=== PATIENT | male | born 1985 | race Caucasian/White ===

== ENCOUNTER 2021-12-29 13:42 | Emergency (ER) | payer OTHER, SELFPAY ==
[2021-12-29 13:50] VITALS: BP 161/90; PULSE 97; RESP 20; TEMP 36.9; O2SAT 100
--- NOTE | 2021-12-29 13:51 | ED.GENADULT ---
HPI - General Adult General Chief complaint: Urogenital-Male Stated complaint: Hemorrhoids Time Seen by Provider: 12/29/21 13:51 Source: patient Mode of arrival: ambulatory Limitations: no limitations History of Present Illness HPI narrative: 36-year-old male with no significant medical history presents with complaint of hemorrhoid. Patient states that he has had hemorrhoid for several years, history of large prolapse hemorrhoids. Normally uses [id number] Preparation H. Has plans to be seen at the CT to have hemorrhoidectomy. Last night had bowel movement and saw bright red bleeding. Reports rectal pain and itching. All systems reviewed and negative except as noted above Related Data Allergies Allergy/AdvReac Type Severity Reaction Status Date / Time NKDA Allergy Unknown Unknown Uncoded 12/29/21 13:49 Review of Systems Review of Systems: CONSTITUTIONAL: Denies fever, chills, or sweats. EYES: Denies visual changes, redness, or discharge. ENT: Denies rhinorrhea, congestion, sore throat, or otalgia. CARDIOVASCULAR: Denies chest pain, palpitations, or edema. RESPIRATORY: Denies cough or dyspnea. GASTROINTESTINAL: Denies abdominal pain, nausea, vomiting, or diarrhea. Reports hemorrhoids. GENITOURINARY: Denies dysuria or hematuria. SKIN: Denies rash or itching. MUSCULOSKELETAL: Denies back pain, joint pain, or myalgia. NEUROLOGIC: Denies headache, numbness, or weakness. PSYCHIATRIC: Denies anxiety or depression. All other systems reviewed are negative, except as documented in HPI. PMFSH Past Medical History Medical History (Updated 12/29/21 @ 14:01 by Karen Clemente NP) Anal fissure Benign essential hypertension Family History Family History Grandparent Family history of migraine headaches Family history of glaucoma Hypertension Family history of alcoholism Family history of cardiovascular disease Acute myocardial infarction Family history of arthritis Family history of pulmonary embolism Social History Social History Smoking status: Current every day smoker Alcohol intake: current Comments At time of signature, agree with nursing past medical, surgical, social and family history. There is no relevant family history pertinent to the presenting complaint. Exam Narrative: GENERAL: This is a well-nourished, well-developed patient, in no apparent distress. HEAD: normocephalic, atraumatic. EYES: PERRL. Sclera clear/white. Vision is grossly intact. EARS: External ears normal, auditory canals clear and without drainage, TMs normal without perforation. Hearing grossly intact. NOSE: External nose normal with no obvious nasal discharge, nares without redness, no rhinorrhea. THROAT: Mucous membranes moist, posterior pharynx clear. NECK: Neck supple, non-tender without lymphadenopathy, masses or thyromegaly. CARDIOVASCULAR: Regular rate and rhythm without murmurs, gallops, or rubs. RESPIRATORY: Clear to auscultation. Breath sounds equal bilaterally. No wheezes, rales, or rhonchi. GASTROINTESTINAL: Abdomen soft, non-tender, nondistended. Bowel sounds are active. No hepato-splenomegaly, or palpable masses. No guarding. One external hemorrhoid noted. pt refused rectal exam to assess for internal hemorroids. currenlty no bleeding noted. external hemorrhoid not thrombosed. LILIAM Murillo chief concierge. SKIN: warm, Dry, intact with no suspicious lesions or rash, good texture and turgor. NEURO: awake, alert, and oriented to person, place and time. There were no obvious focal neurologic abnormalities. EXTREMITIES: No joint tenderness, effusion, or edema noted. No calf tenderness. Negative Homans sign bilaterally. BACK: Nontender without deformity. No CVA tenderness. Course Course Level of Care: Express Care Visit Vital Signs Vital signs: Vital Signs Temperature 36.9 C 12/29/21 13:50 Pulse Rate 9
== END 2021-12-29 14:09 | disposition home or self-care (01) ==
PROVIDERS: Emergency Provider Nurse Practitioner Family; PCP Family Medicine
DX: K64.9 Unspecified hemorrhoids (principal); I10 Essential (primary) hypertension; F17.200 Nicotine dependence, unspecified, uncomplicated
CPT/HCPCS: 99213; G0463

== ENCOUNTER 2022-02-10 18:03 | Emergency (ER) | payer OTHER, SELFPAY ==
[2022-02-10 18:12] VITALS: BP 147/94; PULSE 93; RESP 18; TEMP 36.7; O2SAT 100
--- NOTE | 2022-02-10 18:21 | ED.GENADULT ---
HPI - General Adult General Chief complaint: Abdominal Pain Stated complaint: hemorrhoids Time Seen by Provider: 02/10/22 18:12 Source: patient and RN notes reviewed Mode of arrival: ambulatory Limitations: no limitations History of Present Illness HPI narrative: 36 y/o male presented for c/o bleeding hemorrhoids today. States he has anal fissure and chronic hemorrhoids which bleed daily, but today he reports more bleeding than normal and wanted them checked to see 'how bad they are.' Blood is bright red in color, occurred after having BM. States he can get them to stop by clenching buttocks, which he did today. Reports constipation; he does not regularly try to prevent. Denies abdominal pain, n/v/d/f/c. Denies use of blood thinners. Related Data Allergies Allergy/AdvReac Type Severity Reaction Status Date / Time lisinopril AdvReac cough Verified 02/10/22 18:21 NKDA Allergy Unknown Unknown Uncoded 12/29/21 13:49 Review of Systems Review of Systems: CONSTITUTIONAL: Denies body aches, fever, chills EYES: Denies visual changes ENT: Denies rhinorrhea, congestion CARDIOVASCULAR: Denies chest pain, palpitations, or edema. RESPIRATORY: Denies cough or dyspnea. GASTROINTESTINAL:Denies abdominal pain, nausea, vomiting, diarrhea.Reports hematochezia, hemorrhoids GENITOURINARY: Denies dysuria, hematuria, or CVA tenderness. SKIN: Denies rash, itching, or wounds. MUSCULOSKELETAL: Denies back pain, joint pain, or myalgia. NEUROLOGIC: Denies headache, numbness, tingling, or weakness. PSYCH: Denies mood change All systems reviewed & are unremarkable except as noted in HPI and below PMFSH Past Medical History Medical History Anal fissure Benign essential hypertension Family History Family History Grandparent Family history of migraine headaches Family history of glaucoma Hypertension Family history of alcoholism Family history of cardiovascular disease Acute myocardial infarction Family history of arthritis Family history of pulmonary embolism Social History Social History Smoking packs per day: 1 Smoking cigarettes per day: 20.0 Tobacco type: cigarettes Second hand tobacco smoke exposure: No Alcohol intake: current Drinks per week: 10 Substance use: current Substance use type: marijuana Gender identity (if verbalized by the patient): Male Comments At time of signature, I have reviewed and agree with nursing past medical, surgical, social and family history unless otherwise noted. Please see nursing chart for further information. There is no relevant family history pertinent to the presenting complaint Exam Narrative: GENERAL: Well-appearing HEAD: Normocephalic, atraumatic. EYES: EOMI. Conjunctivae normal. ENT: Mucous membranes pink and moist. NECK: Normal AROM. Supple. No lymphadenopathy. CHEST: No respiratory distress. Clear to auscultation. HEART: Regular rate and rhythm. No murmur appreciated. Normal peripheral pulses. ABDOMEN/rectal: one external hemorrhoid noted approx 1cm diameter, no active bleeding. Nontender abdomen, No guarding, rebound tenderness, asymmetry; abd soft, nondistended, normal active bowel sounds. MUSCULOSKELETAL: No bony tenderness. EXTREMITIES: Normal range of motion. No edema. SKIN: Warm, dry, no rash. Capillary refill normal. Normal skin turgor. NEURO: No focal deficits. Alert and oriented x3. Gait steady. PSYCH: anxious/flat Course Course Emergency Course: Patient is aware of diagnosis, understands and agrees to treatment plan. Anticipatory guidance given. Patient agrees to follow-up as directed and is aware of reasons to seek care at the emergency department. Portions of this record may have been created with voice recognition software Level of Care: Express Care Visit Vital Signs Vital signs:
== END 2022-02-10 18:33 | disposition home or self-care (01) ==
PROVIDERS: Emergency Provider Nurse Practitioner Family; PCP Family Medicine
DX: K64.8 Other hemorrhoids (principal); I10 Essential (primary) hypertension; F12.90 Cannabis use, unspecified, uncomplicated
CPT/HCPCS: 99211; G0463

== ENCOUNTER 2022-04-10 17:32 | Emergency (ER) | payer OTHER, SELFPAY ==
[2022-04-10 17:40] VITALS: BP 127/76; PULSE 88; RESP 16; TEMP 36.4; O2SAT 99
--- NOTE | 2022-04-10 17:45 | ED.EAR ---
HPI - Ear Problem General Chief complaint: Ear Stated complaint: bleeding in ear, trouble hearing Time Seen by Provider: 04/10/22 17:47 Source: patient Mode of arrival: ambulatory Limitations: no limitations History of Present Illness HPI Narrative: Was cleaning the ear with a Q-tip and noted blood on the tip. Has some muffling noise in the ear Complaint: ear pain Location: right ear Duration: constant Severity: mild Relieving factors: nothing Exacerbating factors: nothing Context: Reports trauma; Denies recent illness Discharge from ear: Reports no Treatment prior to arrival: none Related Data Allergies Allergy/AdvReac Type Severity Reaction Status Date / Time lisinopril AdvReac cough Verified 04/10/22 17:42 Review of Systems Review of Systems: All systems reviewed & are unremarkable except as noted in HPI and below PMFSH Past Medical History Medical History Anal fissure Benign essential hypertension Family History Family History Grandparent Family history of migraine headaches Family history of glaucoma Hypertension Family history of alcoholism Family history of cardiovascular disease Acute myocardial infarction Family history of arthritis Family history of pulmonary embolism Social History Social History Smoking packs per day: 1 Smoking cigarettes per day: 20.0 Tobacco type: cigarettes Second hand tobacco smoke exposure: No Alcohol intake: current Drinks per week: 10 Substance use: current Substance use type: marijuana Gender identity (if verbalized by the patient): Male Exam Const: General: healthy appearing, no acute distress and alert Nutritional Appearance: well nourished Limitations: no limitations HENMT: Head: normal to inspection Ears: external ears normal, TM's normal bilaterally and Abnormal EAC present (Right ear canal has a superficial abrasion . Bleeding is controlled ) no cerumen impaction and no foreign body General nose exam: Normal external nose present Mouth: Yes moist mucous membranes Eyes: Pupils: Equal, round and reactive pupils present EOM: EOMs intact bilaterally Neck: Neck: normal visual inspection Resp: Effort & Inspection: normal respiratory effort Auscultation: clear to auscultation bilaterally Cardio: Rate: regular rate Rhythm: regular rhythm Heart sounds: no murmurs Skin: General skin exam: normal color Rashes: no rashes Wounds: no wounds Neuro: General: patient oriented x3 and moves all extremities Cranial nerves: Yes Nystagmus not present Speech: normal speech Gait exam (Neuro): Normal gait present Extrem: General: normal to inspection Psych: Mental Status: mental status grossly normal Course Course Emergency Course: Patient is advised to use Qtips cautiously Will give him a script for ear drops Discharge Plan Discharge Clinical Impression: Abrasion of right ear canal Patient Disposition: Home, Self-Care Condition: Stable Additional Instructions: Use ear drops as prescribed Use Qtips cautiously See your doctor as needed Prescriptions: New Cortisporin-TC 3.3-3-10-0.5 mg/mL drops,suspension 4 drp RIGHT EAR TID Qty: 10 0RF No Action losartan 25 mg tablet 25 mg PO DAILY Qty: 30 1RF Follow-up/Referrals: Prem Lees MD [Primary Care Provider] - Time of Disposition: 17:57
== END 2022-04-10 18:15 | disposition home or self-care (01) ==
PROVIDERS: Emergency Provider Emergency Medicine; PCP Family Medicine
DX: S00.411A Abrasion of right ear, initial encounter (principal)
CPT/HCPCS: 99283

== ENCOUNTER 2022-09-29 04:44 | Emergency (ER) | payer OTHER, SELFPAY ==
--- NOTE | ~2022-09-29 | XR_ITS ---
EXAMINATION: XR knee LT 2V DATE: 09/29/2022 05:29 INDICATION: Left knee pain. TECHNIQUE: 2 views of left knee were obtained. COMPARISON: None. FINDINGS: Bone alignment is normal. No fracture. Joint spaces are well maintained. There is no knee j oint effusion. There is anterior soft tissue swelling. IMPRESSION: 1. No fracture. Reviewed, dictated and finalized at location A. MA TABLE OPERATOR IMPRESSION: 1. No fracture.
[2022-09-29 04:47] VITALS: BP 130/102; PULSE 91; RESP 20; TEMP 36.4; O2SAT 97
[2022-09-29] MEDS: KETOROLAC (*BKC) 60 MG/2 ML VIAL IM (05:03)
--- NOTE | 2022-09-29 05:10 | ED.EXTPRO ---
HPI - Extremity Problem General Chief complaint: Extremity Problem,Nontraumatic Stated complaint: left knee pain Source: patient Mode of arrival: ambulatory Limitations: no limitations History of Present Illness HPI Narrative: this is a 37 year gentleman that presents with a 1 day history of left knee pain mild swollen warm tender red warm to touch no known injuries has good range of motion S tender to palpation. Currently there is no fever chills. Complaint: extremity pain Onset (ago): day(s) Pain Consistency: constant Location: left Severity scale (1-10): 7 Quality: aching Radiation: none Relieving factors: nothing Exacerbating factors: nothing Associated symptoms: denies other symptoms Related Data Allergies Allergy/AdvReac Type Severity Reaction Status Date / Time lisinopril AdvReac cough Verified 04/10/22 17:42 Review of Systems Review of Systems: All systems reviewed & are unremarkable except as noted in HPI and below PMFSH Past Medical History Medical History Anal fissure Benign essential hypertension Family History Family History Grandparent Family history of migraine headaches Family history of glaucoma Hypertension Family history of alcoholism Family history of cardiovascular disease Acute myocardial infarction Family history of arthritis Family history of pulmonary embolism Social History Social History Smoking packs per day: 1 Smoking cigarettes per day: 20.0 Tobacco type: cigarettes Second hand tobacco smoke exposure: No Alcohol intake: current Drinks per week: 10 Substance use: current Substance use type: marijuana Gender identity (if verbalized by the patient): Male Exam Const: General: healthy appearing Nutritional Appearance: well nourished Orientation/consciousness: patient oriented x3 Limitations: no limitations HENMT: Head: normal to inspection Face/Nose/Sinus: Normal external nose present Face and sinus: normal facial exam Mouth: Yes Normal oral and palatal mucosa present Eyes: Conjunctivae: conjunctivae normal Pupils: Equal, round and reactive pupils present EOM: EOMs intact bilaterally Neck: Neck: normal visual inspection Chest: Chest palpation & inspection: normal inspection of the chest Resp: Effort & Inspection: normal respiratory effort Cardio: Rate: regular rate Rhythm: regular rhythm GI: GI Palp: Yes Soft to palpation Auscultation: normal bowel sounds : General: Yes bladder normal to palpation Skin: General skin exam: normal color Other: Anterior knee red warm tender to palpation Neuro: General: patient oriented x3 and moves all extremities Extrem: General: normal to inspection Psych: Mental Status: mental status grossly normal Affect: normal affect Course Course Emergency Course: patient had x-ray performed and reviewed along with blood work patient received IM Toradol and Zofran which did improve his pain level and nausea. Vital Signs Vital signs: Vital Signs Temperature 36.4 C L 09/29/22 04:47 Pulse Rate 91 09/29/22 04:47 Respiratory Rate 20 09/29/22 04:47 Blood Pressure 130/102 H 09/29/22 04:47 Pulse Oximetry 97 09/29/22 04:47 Oxygen Delivery Room Air 09/29/22 04:47 Temperature 36.4 C L 09/29/22 04:47 Pulse Rate 91 09/29/22 04:47 Respiratory Rate 20 09/29/22 04:47 Blood Pressure 130/102 H 09/29/22 04:47 Pulse Oximetry 97 09/29/22 04:47 Oxygen Delivery Room Air 09/29/22 04:47 Critical Care Time Critical Care Time Critical Care Time: No Discharge Plan Discharge Clinical Impression: Gout Patient Disposition: Home, Self-Care Condition: Stable Instructions: Antibiotic Form, Gout (ED) Additional Instructions: take medicine as prescribed and follow-up with primary care physician
[2022-09-29] MEDS: ONDANSETRON HCL ODT 4 MG TABLET PO (05:18)
[2022-09-29 05:30] LABS: Basophils Absolute Auto 0.01 K/mm3 (0.00-0.10); Basophils Percent Auto 0.1 % (0.0-1.0); Eosinophils Absolute Auto 0.43 K/mm3 (0.02-0.50); Eosinophils Percent Auto 4.1 % (1.0-6.0); Hematocrit 31.6 % (40.0-54.0); Immature Granulocyte Absolute 0.03 K/mm3 (0.00-0.00); Immature Granulocyte Percent A 0.3 % (0.0-0.0); Lymphocytes Absolute Auto 4.17 K/mm3 (1.10-4.50); Lymphocytes Percent Auto 39.9 % (18.0-42.0); Mean Corpuscular HGB Conc 31.6 g/dL (32.0-36.0); Mean Corpuscular Hemoglobin 24.2 pg (27.0-31.0); Mean Corpuscular Volume 76.3 fL (78.0-102.0); Mean Platelet Volume 8.7 fl (8.7-11.0); Monocytes Absolute Auto 0.85 K/mm3 (0.10-0.90); Monocytes Percent Auto 8.1 % (2.0-11.0); Neutrophils Percent Auto 47.5 % (50.0-70.0); Platelet Count Result 255 K/mm3 (150-420); Red Blood Count 4.14 M/mm3 (4.70-6.10); Red Cell Distribution Width 18.3 % (11.6-14.4); White Blood Count 10.4 K/mm3 (4.8-10.8)
[2022-09-29 05:47] LABS: Alanine Aminotransferase 16 U/L (16-63); Albumin Level 3.5 g/dL (3.4-5.0); Alkaline Phosphatase 50 U/L (46-116); Anion Gap 13 mmol/L (8-16); Aspartate Amino Transferase 12 U/L (15-37); Bilirubin,Total 0.2 mg/dL (0.00-1.00); Blood Urea Nitrogen 19 mg/dL (7-18); Calcium 8.3 mg/dL (8.5-10.1); Carbon Dioxide 25 mmol/L (21-32); Chloride 106 mmol/L (98-108); Estimated CRCL calculation 62 ml/min; Estimated Glomerular Filt Rate 51; Glucose 104 mg/dL (70-99); Osmolality Calculated 300 mOsm/kg (285-295); Potassium 3.3 mmol/L (3.5-5.1); Sodium 144 mmol/L (136-145); Uric Acid 6.4 mg/dL (3.5-7.2)
[2022-09-29 05:49] LABS: CRP < 0.5 mg/dL (0.0-0.9)
[2022-09-29 06:09] VITALS: BP 136/87; PULSE 87; RESP 18; TEMP 36.6; O2SAT 99
== END 2022-09-29 06:20 | disposition home or self-care (01) ==
PROVIDERS: Emergency Provider Emergency Medicine
DX: M10.9 Gout, unspecified (principal)
CPT/HCPCS: 36415; 73560; 80053; 84550; 85025; 86140; 96372; 99283; A9270; J1885

== ENCOUNTER 2023-01-06 23:33 | Emergency (ER) | payer SELFPAY ==
[2023-01-07 00:01] LABS: Basophils Percent Auto 0.4 % (0.2-1.2); Eosinophils Absolute Auto 0.1 K/mm3 (0-0.3); Eosinophils Percent Auto 2.3 % (0-4.4); Hematocrit 35.9 % (42.0-52.0); Immature Granulocyte Absolute 0.01 K/mm3 (0.00-0.031); Immature Granulocyte Percent A 0.2 % (0-0.5); Lymphocytes Percent Auto 39.9 % (18.3-44.2); Mean Corpuscular HGB Conc 30.6 g/dl (32-36); Mean Corpuscular Volume 71.7 fl (80-100); Mean Platelet Volume 8.8 fl (7.4-10.4); Monocytes Absolute Auto 0.4 K/mm3 (0.1-0.6); Neutrophils Absolute Auto 2.6 K/mm3 (1.3-6.7); Neutrophils Percent Auto 49.2 % (45.5-73.1); Platelet Count Result 299 k/mm3 (150-375); Red Blood Count 5.01 M/mm3 (4.6-6.20); Red Cell Distribution Width 17.8 % (11.5-14.5); White Blood Count 5.3 K/mm3 (4.5-10.0)
[2023-01-07 00:15] LABS: Acetaminophen < 10 ug/mL (10-30); Ethanol 274 mg/dL (<10); Salicylate < 1.0 mg/dL (2-20)
[2023-01-07 00:16] LABS: Alanine Aminotransferase 17 U/L (6-50); Albumin Level 4.9 g/dL (3.5-5.1); Alkaline Phosphatase 53 U/L (38-126); Anion Gap 8 mmol/L (8-16); Aspartate Amino Transferase 28 U/L (17-59); Bilirubin,Total 0.3 mg/dL (0.2-1.3); Blood Urea Nitrogen 8 mg/dL (9-20); Carbon Dioxide 25 mmol/L (22-30); Chloride 109 mmol/L (98-107); Estimated Glomerular Filt Rate > 60; Glucose 96 mg/dL (65-110); Potassium 4.5 mmol/L (3.4-5.0); Sodium 142 mmol/L (137-145)
--- NOTE | 2023-01-07 00:31 | ED.GENADULT ---
HPI - General Adult General Chief complaint: Psychiatric Symptoms <Chele Price MD - Last Filed: 01/07/23 04:41> Stated complaint: SI <Chele Price MD - Last Filed: 01/07/23 04:41> Time Seen by Provider: 01/06/23 23:41 <Chele Price MD - Last Filed: 01/07/23 04:41> History of Present Illness HPI narrative: Patient a 37-year-old gentleman who presents to the emergency department with chief complaint of needs mental health evaluation per EMS the patient had been drinking this evening and found out that his ex-girlfriend was involved in relations with his best friend the patient was reported to have expressed thoughts of homicidal ideation of harming them and also expressed suicidal ideation. Police and EMS were called and notified and police removed firearms from the house did not fill out an affidavit for the patient and had the patient transported by EMS upon arrival to the emergency department the patient reports that he is currently not suicidal and reports no homicidal ideation reports he was upset and drunk <Chele Price MD - Last Filed: 01/07/23 04:41> Related Data Allergies/adverse reactions: Allergies Allergy/AdvReac Type Severity Reaction Status Date / Time lisinopril AdvReac cough Verified 04/10/22 17:42 <Chele Price MD - Last Filed: 01/07/23 04:41> Review of Systems Review of Systems: A 10 system review of systems was completed on the patient and is negative except for what is stated in the HPI. Nursing and ancillary documentation was reviewed. <Chele Price MD - Last Filed: 01/07/23 04:41> PMF Past Medical History Medical History: Medical History Anal fissure Benign essential hypertension <Chele Price MD - Last Filed: 01/07/23 04:41> Family History Family History: Family History Grandparent Family history of migraine headaches Family history of glaucoma Hypertension Family history of alcoholism Family history of cardiovascular disease Acute myocardial infarction Family history of arthritis Family history of pulmonary embolism <Chele Price MD - Last Filed: 01/07/23 04:41> Social History Social History: Social History Smoking packs per day: 1 Smoking cigarettes per day: 20.0 Tobacco type: cigarettes Second hand tobacco smoke exposure: No Alcohol intake: current Drinks per week: 10 Substance use: current Substance use type: marijuana and crack/cocaine Living arrangements: alone Occupation/Education: occupation Gender identity (if verbalized by the patient): Male <Chele Price MD - Last Filed: 01/07/23 04:41> Exam Narrative: GENERAL: Well-appearing, well-nourished, and in no acute distress. HEAD: Normocephalic, atraumatic. EYES: PERRLA and EOMI. ENT: Nares clear, no rhinorrhea or epistaxis. Mucous membranes moist. NECK: Supple. CHEST: Clear to auscultation. No respiratory distress. HEART: Regular rate and rhythm. No murmur heard. Normal peripheral pulses. ABDOMEN: Soft, nontender, nondistended, normal active bowel sounds. EXTREMITIES: Normal range of motion. No edema. SKIN: Warm, dry, no rash. NEURO: No focal deficits. Alert and oriented x3. PSYCH: Normal mood and affect. <Chele Price MD - Last Filed: 01/07/23 04:41> Course Reevaluation(s) Reevaluation #1: 10:57 AM on signout by Dr. Price patient's ethanol was pending. On reevaluation patient denies any complaints and is well-appearing. Patient did have breakfast. Patient's repeat alcohol was below the limit. At this time patient is medically cleared to be evaluated by the crisis counselor. Patient is medically cleared for transport and inpatient p
[2023-01-07 00:36] LABS: Influenza A QL RT-PCR Negative (Negative); Influenza B QL RT-PCR Negative (Negative); SARS-CoV-2 RNA PCR Negative
[2023-01-07 00:44] LABS: Appearance Urine Clear (Clear); Bilirubin Urine Negative (Negative); Blood Urine Negative (Negative); Color Urine Yellow (Yellow); Glucose Urine UA Negative (Negative); Ketones Urine Negative (Negative); Leukocyte Esterase Ur Negative LEU/UL (Negative); Nitrate Urine Negative (Negative); Protein Urine Negative (Negative); Specific Grav Ur 1.008 (1.001-1.035); Urobilinogen Urine 0.2 mg/dL (<2.0); pH Urine 5.5 (5.0-9.0)
[2023-01-07 00:46] LABS: Thyroid Stimulating Hormone 0.558 uIU/mL (0.465-4.680)
[2023-01-07 00:52] LABS: Add Urine Microscopic? NO
[2023-01-07 01:07] LABS: Amphetamine Screen Urine Negative (Negative); Barbiturate Screen Urine Negative (Negative); Benzodiazepines Screen Urine Negative (Negative); Cannabinoid Screen Urine Positive (Negative); Cocaine Screen Urine Positive (Negative); Methadone Screen Urine Negative (Negative); Opiate Screen Urine Negative (Negative); Phencyclidine Screen Urine Negative (Negative)
[2023-01-07 07:13] LABS: Ethanol 140 mg/dL (<10)
[2023-01-07 10:53] LABS: Ethanol 32 mg/dL (<10)
[2023-01-07 12:15] VITALS: BP 138/96; PULSE 100; RESP 16; TEMP 36.7; O2SAT 100
== END 2023-01-07 13:16 | disposition home or self-care (01) ==
PROVIDERS: Emergency Medicine; Emergency Provider Emergency Medicine
DX: F10.10 Alcohol abuse, uncomplicated (principal); Y90.8 Blood alcohol level of 240 mg/100 ml or more; Z20.822 Contact with and (suspected) exposure to COVID-19; R45.851 Suicidal ideations
CPT/HCPCS: 36415; 80053; 80307; 81003; 84443; 85025; 87636; 96372; 99284

== ENCOUNTER 2023-03-22 15:30 | Outpatient (CLI) | payer OTHER, SELFPAY ==
--- NOTE | ~2023-03-22 | XR_ITS ---
EXAMINATION: XR chest 2V 03/22/2023 15:44 INDICATION: Abnormal weight loss. Hypertension. PROCEDURE: 2 view chest COMPARISON: No prior studies for comparison. FINDINGS: The lungs are clear. The cardiomediastinal silhouette is within normal limits. There are no pleural effusions. There is no pneumothorax suspected. IMPRESSION: 1: NO ACUTE CARDIOPULMONARY DISEASE. Reviewed, dictated and finalized at location L.
== END 2023-03-22 15:31 ==
PROVIDERS: PCP Internal Medicine; Visit Provider Clinical Nurse Specialist
DX: R63.4 Abnormal weight loss (principal); I10 Essential (primary) hypertension; Z72.0 Tobacco use
CPT/HCPCS: 71046

== ENCOUNTER 2023-03-23 09:01 | Outpatient (CLI) | payer OTHER, SELFPAY ==
[2023-03-23 09:14] LABS: Mean Corpuscular HGB Conc 29.7 g/dL (32.0-36.0); Mean Corpuscular Hemoglobin 20.9 pg (27.0-31.0); Mean Corpuscular Volume 70.2 fL (78.0-102.0); Mean Platelet Volume 8.9 fl (8.7-11.0); Platelet Count Result 326 K/mm3 (150-420); Red Blood Count 5.27 M/mm3 (4.70-6.10); Red Cell Distribution Width 19.1 % (11.6-14.4); White Blood Count 3.8 K/mm3 (4.8-10.8)
[2023-03-23 09:43] LABS: Total Cells Counted 100
[2023-03-23 09:44] LABS: Band Neutrophils Percent 0 % (0-6); Basophils Absolute Manual 0.03 K/mm3 (0-0.1); Basophils Percent Manual 1 % (0-1); Eosinophils Absolute Manual 0.34 K/mm3 (0.02-0.5); Eosinophils Percent Manual 9 % (1-6); Lymphocytes Absolute Manual 1.29 K/mm3 (1.1-4.5); Lymphocytes Percent Manual 34 % (18-44); Monocytes Absolute Manual 0.53 K/mm3 (0.1-0.90); Monocytes Percent Manual 14 % (3-9); Neutrophils Absolute Manual 1.59 K/mm3 (1.3-6.7); Neutrophils Percent Manual 42 % (46-73); Platelet Estimate Adequate (Adequate)
[2023-03-23 10:02] LABS: Alanine Aminotransferase 26 U/L (16-63); Alkaline Phosphatase 65 U/L (46-116); Anion Gap 9 mmol/L (8-16); Aspartate Amino Transferase 28 U/L (15-37); Bilirubin,Total 0.3 mg/dL (0.00-1.00); Blood Urea Nitrogen 23 mg/dL (7-18); Calcium 8.9 mg/dL (8.5-10.1); Carbon Dioxide 27 mmol/L (21-32); Chloride 104 mmol/L (98-108); Cholesterol 250 mg/dL (0-200); Estimated Glomerular Filt Rate > 60; Glucose 102 mg/dL (70-99); HDL Direct 49 mg/dL (40-60); LDL Cholesterol Calculated 179 mg/dL (<130); Osmolality Calculated 293 mOsm/kg (285-295); Potassium 4.7 mmol/L (3.5-5.1); Sodium 140 mmol/L (136-145); Thyroid Stimulating Hormone 0.63 uIU/mL (0.36-3.74); Total Protein 7.6 g/dL (6.4-8.2); Triglycerides 108 mg/dL (0-150)
[2023-03-23 10:18] LABS: Immature Reticulocyte Fraction 12.2 % (2.0-16.52); Reticulocyte Hemoglobin Conten 24.2 pg (28.0-35.0); Reticulocyte Percent 0.38 % (0.50-1.50); Reticulocytes Absolute 0.02 M/mm3 (0.02-0.1)
[2023-03-23 13:36] LABS: Amphetamine Screen Urine Negative (Negative); Barbiturate Screen Urine Negative (Negative); Benzodiazepines Screen Urine Negative (Negative); Cannabinoid Screen Urine Positive (Negative); Cocaine Screen Urine Positive (Negative); Methadone Screen Urine Negative (Negative); Phencyclidine Screen Urine Negative (Negative)
[2023-03-23 13:48] LABS: Opiate Screen Urine Negative (Negative)
[2023-03-23 13:49] LABS: Ferritin 14 ng/mL (26-388); Folic Acid 8.1 ng/mL (8.6->20); Iron 16 ug/dL (65-175); Percent Iron Saturation 3 % (12-57); Vitamin B12 407 pg/mL (193-986)
[2023-03-27 10:44] LABS: HIV 1 P24 AG Negative (Negative); HIV 1/2 AB Negative (Negative)
== END 2023-03-23 09:02 | disposition home or self-care (01) ==
LOC: CHSLAB 09:03
PROVIDERS: PCP Internal Medicine; Visit Provider Clinical Nurse Specialist
DX: R63.4 Abnormal weight loss (principal); I10 Essential (primary) hypertension; F14.10 Cocaine abuse, uncomplicated; D64.9 Anemia, unspecified
CPT/HCPCS: 36415; 80053; 80061; 80307; 82607; 82728; 82746; 83540; 83550; 84443; 85025; 85046; 86703

== ENCOUNTER 2024-01-21 10:06 | Outpatient (CLI) | payer OTHER, SELFPAY ==
--- NOTE | ~2024-01-21 | US_ITS ---
EXAMINATION: US scrotum doppler DATE: 01/21/2024 10:47 INDICATION: Right lower quadrant pain TECHNIQUE: Testicular sonogram utilizing grayscale and Doppler COMPARISON: None. FINDINGS: The right testis measures 4.7 x 2.2 x 3.2 cm. The left testis measures 4.4 x 2.5 x 3.2 cm. There is normal vascular flow to both testes. The right epididymis is normal with normal vascular alyce w. The left epididymis is normal with normal vascular flow. There are small bilateral hydroceles. The re appears to be a small right inguinal hernia corresponding to the area of the patient's right lower quadrant pain. IMPRESSION: 1. Probable small right inguinal hernia corresponding to the area of the patient's right lower quadra nt pain. Reviewed, dictated and finalized at location F. IMPRESSION: 1. Probable small right inguinal hernia corresponding to the area of the patien t's right lower quadrant pain.
== END 2024-01-21 10:07 ==
LOC: MICIMG 10:07
PROVIDERS: PCP Internal Medicine; Visit Provider Clinical Nurse Specialist
DX: R10.31 Right lower quadrant pain (principal); N50.819 Testicular pain, unspecified
CPT/HCPCS: 76870; 93976

== ENCOUNTER 2024-05-26 18:00 | Emergency (ER) | payer OTHER, SELFPAY ==
[2024-05-26 18:12] VITALS: BP 150/97; PULSE 92; RESP 20; TEMP 36.6; O2SAT 100
--- NOTE | 2024-05-26 19:00 | PC.NURSE ---
1899-PATIENT STATES I'M GOING TO ANOTHER HOSPITAL. I'M IN TO [place]CH FUCKING PAIN . PATIENT WALKED OUT THE DOOR.
== END 2024-05-27 00:08 | disposition left against medical advice (07) ==
LOC: ANHED 19:10
PROVIDERS: PCP Internal Medicine
DX: K64.9 Unspecified hemorrhoids (principal)
CPT/HCPCS: 99199

== ENCOUNTER 2024-05-26 21:08 | Emergency (ER) | payer OTHER, SELFPAY ==
[2024-05-26 21:13] VITALS: BP 132/95; PULSE 94; RESP 18; TEMP 36.5; O2SAT 99
--- NOTE | 2024-05-26 21:13 | ED.GENADULT ---
HPI - General Adult General Chief complaint: Unspecified Stated complaint: hemorrhoid Time Seen by Provider: 05/26/24 21:12 History of Present Illness HPI narrative: Pt presents with hemmorhoidal pain. Pt says he had BM at work yesterday and had quite a bit of bleeding. Pt says the hemmorhoid popped out today and he pushed it back in but the pain has increased. Pt says the hemmorhoid was soft when he pushed it back in. Pt not bleeding now. [facility]. Pt waited at [facility] for two hours and left. Related Data Allergies Allergy/AdvReac Type Severity Reaction Status Date / Time lisinopril AdvReac cough Verified 02/29/24 08:35 Review of Systems Review of Systems: All systems reviewed & are unremarkable except as noted in HPI and below PMFSH Past Medical History Medical History Abnormal weight loss Anal fissure Benign essential hypertension Cocaine use disorder Decreased appetite Early satiety Hematochezia HEATHER (iron deficiency anemia) Surgical History Surgical History History of umbilical hernia repair 2006 - umbilical hernia repair with mesh performed while stationed in [place] History of umbilical hernia repair ~ 1988 - umbilical hernia repair without mesh Family History Family History Grandparent Family history of migraine headaches Family history of glaucoma Hypertension Family history of alcoholism Family history of cardiovascular disease Acute myocardial infarction Family history of arthritis Family history of pulmonary embolism Social History Social History Smoking packs per day: 1 Smoking cigarettes per day: 20.0 Years smoked: 18 Smoking pack-years: 18.00 Smoking status: Current every day smoker Tobacco type: cigarettes Second hand tobacco smoke exposure: No Alcohol intake: current Drinks per week: 12 Substance use: current Substance use type: marijuana Last use: 02/29/24 Living arrangements: alone Occupation/Education: occupation Gender identity (if verbalized by the patient): Male Exam Const: General: cooperative and healthy appearing Nutritional Appearance: average body habitus Orientation/consciousness: patient oriented x3 Limitations: no limitations Chest: Chest palpation & inspection: normal inspection of the chest Resp: Effort & Inspection: normal respiratory effort and able to speak in complete sentences Cardio: Rate: regular rate Rhythm: regular rhythm GI: Inspection: normal to inspection GI Palp: No abdominal tenderness Auscultation: normal bowel sounds Rectal Exam: Internal hemorrhoid(s) present (tender right sided hemorrhoid no bleeding) Skin: General skin exam: normal color and no rashes or lesions noted Neuro: General: patient oriented x3 Extrem: General: normal to inspection, full ROM and no clubbing, cyanosis or edema Psych: Appearance: grossly normal Mental Status: mental status grossly normal Speech and movement: Normal speech and movement present Affect: normal affect Attitude: cooperative Thought process: Normal thought process present Thought content: Yes Normal thought content present Insight: Good insight present (Psych) Judgement: Good judgement present (Psych) Course Vital Signs Vital signs: Vital Signs Temperature 97.7 F 05/26/24 21:13 Pulse Rate 94 05/26/24 21:13 Respiratory Rate 18 05/26/24 21:13 Blood Pressure 132/95 H 05/26/24 21:13 Pulse Oximetry 99 05/26/24 21:13 Oxygen Delivery Room Air 05/26/24 21:13 Temperature 97.7 F 05/26/24 21:13 Pulse Rate 94 05/26/24 21:13 Respiratory Rate 18 05/26/24 21:13 Blood Pressure 132/95 H 05/26/24 21:13 Pulse Oximetry 99 05/26/24 21:13 Oxygen Delivery Room Air 05/26/24 21:13
== END 2024-05-26 21:23 | disposition home or self-care (01) ==
PROVIDERS: Emergency Provider Emergency Medicine; PCP Family Medicine
DX: K64.9 Unspecified hemorrhoids (principal); I10 Essential (primary) hypertension; F17.210 Nicotine dependence, cigarettes, uncomplicated
CPT/HCPCS: 99283

== ENCOUNTER 2025-03-12 07:57 | Outpatient (CLI) | payer OTHER, SELFPAY ==
--- OUTSIDE RECORDS SUMMARY | 2025-03-12 08:05 | XMS_ITS | Continuity of Care Document ---
Author Name [facility] Organization [facility] Care Team Providers Care Systematic Theology Professor Name Role Phone [facility] Unavailable Unavailable Problems Combined list of problems from Department of Defense and Veterans Affairs facilities. It does not include entries that were removed or entered in error. Problem Status Onset Date Problem Type Date of Resolution Comments Source JOINT INSTABILITY ANKLE / FOOT Inactive Condition JOINT INSTABILI TY ANKLE / FOOT DoD ankle joint pain Inactive Condition ankle joint pain DoD ANKLE SPRAIN RIGHT Inactive Condition ANKLE SPRA IN RIGHT DoD Laboratory Studies Active Condition DoD ALCOHOL ABUSE - EPISODIC Active Condition DoD visit for: administrative purpose Active Condition DoD visit for: ears / hearing exam Active Condition DoD visit for: services physical separation Active Condition DoD abdominal pain Active Condition DoD Imaging Nonspecific Abnormal Findings Gastrointestinal Tract Inactive Condition DoD COLITIS Active Condition DoD abdominal pain around the belly button (periumbilical) Active Condition Recurring incisional pain suspect from increased activity. No hernia palpable. CT scan ordered. Celebrex, percocets, oxycontin 10mg q12h ordered. f/u after CT scan or sooner prn. DoD Abdomen Tenderness Direct Periumbilical Inactive Condition DoD UMBILICAL HERNIA Active Condition Rec overing. Pt may participate in FTX however will require 3 week profile until tenderness resolves. f/u prn. DoD UNSPECIFIED MUSCLE STRAIN Inactive Condition rectus muscle strain: nsaids, profile, f/u with pmd in two weeks. earlier eval if sx worsen DoD SUPERFICIAL INJURY - BLISTER OF THE FOOT Inactive Condition TREATED WITH MOLESKINPT EDUCATION AND REASSURANCE DoD WARTS HAND LEFT Active Condition PT G OING TO TRY OTC SALICYLIC ACID PADS, IF NO IMPROVEMENT TO GO TO [facility] FOR CRYOTHERAPY. DoD visit for: services physical Active Condition DoD HEMORRHOIDS Active Condition will tx with metamucil and colace DoD Vaccines Prophylactic Need Against Influenza Active Condition DoD Vaccines Prophylactic Need Inactive Condition DoD Need For Vaccination Hepatitis B Inactive Condition DoD Need For Vaccination Hepatitis A Inactive Condition DoD visit for: screening exam pulmonary tuberculosis Inactive Condition DoD visit for: screening exam Inactive Condition DoD Vaccines Prophylactic Need Against Single Disease Inactive Condition DoD Vaccines Prophylactic Need Against Combinations Of Diseases Inactive Condition [facility] visit for: services physical accession Inactive Condition [facility] Exposure to potentially hazardous substance ([facility] [id number]) Active Condition Apr 30 4 Entered By: PAULINE HALL Comment: Entered automatically through ANGELO Problem List documentation program [facility] Hemorrhoids Active Condition [facility] Hyperlipidemia Active Condition [facility] Past history of procedure Active Condition Jun 08, 2021 Entered By: MARIJA AVELAR Comment: childhood umbilical herniorrhaphyA2020 Entered By: MARIJA AVELAR Comment: 07/2007 diagnostic laparoscopy with repeat umbilical herniorrhaphy [facility] Tobacco User ([facility] [id number]) Active Condition [facility] Diagnosis: ICD-10-CM K64.9 Unspecified hemorrhoids Active Diagnosis [facility] Diagnosis: ICD-10-CM K40.90 Unil inguinal hernia, w/o obst or gangr, not spcf as recur Active Diagnosis [facility] Diagnosis: ICD-10-CM E78.5 Hyperlipidemia, unspecified Active Diagnosis [facility] Medications Combined list of outpatient medications from Department of Defense and Veterans Affairs facilities.Medications provided include 1) outpatient medications from the last 15 months, and 2) patient-reported medications. Medication Details Route Status Patient Instructions Prescription Expires Prescription Number Last Dispense Date Ordering Provider Order Date Order Qty Source CHLORHEXIDI NE GLUCONATE 4% LIQUID,TOP APPLY SMALL AMOUNT TO AFFECTED AREA(S) DIRECTED FOR SKIN DISINFEC TION (TOPICAL USE ONLY) AVOID CONTACT WITH EYES. PREOPERA TIVE SHOWER WASH TOPICA L DISCONT INUED BY PROVIDE R 03/11/2025 [id number] 5 Sera GODINEZ R 2024 120 [facility] CHLORHEXIDI NE GLUCONATE 4% LIQUID,TOP APPLY MODERATE AMOUNT TO AFFECTED AREA(S) TWICE FOR SKIN DISINFEC TION (WASH BODY THE EVENING BEFORE AND THE MORNING OF SURGERY; USE 1 BOTTLE FOR EACH EPISODE OF BATHING TO REDUCE SKIN BACTERIA ; AVOID CONTACT WITH EYES) (WASH BODY THE EVENING BEFORE AND THE MORNING OF SURGERY; USE 1 BOTTLE FOR EACH EPISODE OF BATHING TO REDUCE SKIN BACTERIA ; AVOID CONTACT WITH EYES) TOPICJamel L DISCONT INUED 02/15/2025 [id number] 5 MANOJ LAUREN 2024 120 [facility] NICOTINE 21MG/24HRS PATCH APPLY 1 PATCH TO SKIN SITE EVERY MORNING FOR TOBACCO CESSATIO N REMOVE OLD PATCH BEFORE APPLYING NEW ONE. ROTATE SITES. DO NOT SMOKE WHILE WEARING PATCH. TRANSD ERMAL HOLD 03/17/2025 [id number] DEPAULO,S UZANNE 2024 42 [facility] NICOTINE 21MG/24HRS PATCH APPLY 1 PATCH TO SKIN SITE EVERY MORNING REMOVE OLD PATCH BEFORE APPLYING NEW ONE. ROTATE SITES. DO NOT SMOKE WHILE WEARING PATCH. TRANSD ERMAL 09/08/2024 [id number] 4 DEPAULO,S UZANNE 2023 42 [facility] ROSUVASTATI N CA 10MG TAB TAKE ONE TABLET BY MOUTH EVERY EVENING FOR HIGH CHOLESTE ROL ORAL DISCONT INUED BY PROVIDE R 08/22/2025 [id number] 4 DEPAULO,S UZANNE 2023 30 [facility] ROSUVASTATI N CA 20MG TAB TAKE ONE-HALF TABLET BY MOUTH EVERY EVENING ORAL ACTIVE 01/08/2026 [id number] 5 DEPAULO,S UZANNE 2024 45 [facility] ROSUVASTATI N CA 20MG TAB TAKE ONE-HALF TABLET BY MOUTH EVERY EVENING ORAL DISCONT INUED 01/08/2026 [id number] 5 DEPAULO,S UZANNE 2024 15 [facility] Allergies, Adverse Reactions, Alerts Combined list of allergies from Department of Defense and Veterans Affairs facilities. It does not include entries that were removed or entered in error. Substance Category Reaction Severity Reaction type Status Date Reported Comments Source No Known Allergies Drug allergy (disorder) active 12/30/2007 [facility] [place] Immunizations Combined list of available immunizations from the Department of Defense and Veterans Affairs facilities. Immunization Series Date Given Administered By Site Reaction Lot Number CVX Code Drug Entry Level Marketing Representative Status Comments Source Novel influenza-H1N 1-09, injectable 1 2008 [id number] 127 [employer]. (NOV) complet ed Novel influenza -[id number], injectabl e DoD influenza virus vaccine, live, attenuated, for intranasal use 1 2008 [id number] Unknown (UNK) comple t ed influenza virus vaccine, live, attenuate d, for intranasa l use DoD typhoid Vi capsular polysaccharid e vaccine 1 2008 UNK 101 Unknown (UNK) comple t ed typhoid Vi capsular polysacch aride vaccine DoD anthrax vaccine 7 2008 [id number] Other (OTH) complet ed anthrax vaccine DoD anthrax vaccine 6 2008 [id number] 24 Unknown (UNK) comple t ed anthrax vaccine DoD influenza virus vaccine, split virus (incl. purified surface antigen)-reti red CODE 1 2007 [id number] 15 Unknown (UNK) complet ed influenza virus vaccine, split virus (incl. purified surface antigen)- retired CODE DoD anthrax vaccine 5 2007 [id number] 24 Unknown (UNK) comple t ed anthrax vaccine DoD vaccinia (smallpox) vaccine 1 2007 UNK 75 [facility] complet ed vaccinia (smallpox ) vaccine DoD anthrax vaccine 4 2007 UNK 24 [employer] (MED) complet ed anthrax vaccine DoD anthrax vaccine 3 2007 [id number] 24 Other (OTH) complet ed anthrax vaccine DoD anthrax vaccine 2 2007 [id number] 24 Other (OTH) complet ed anthrax vaccine DoD anthrax vaccine 1 2007 [id number] 24 Other (OTH) complet ed anthrax vaccine DoD influenza virus vaccine, live, attenuated, for intranasal use 1 2006 [id number] [employer] (MED) complet ed influenza virus vaccine, live, attenuate d, for intranasa l use DoD hepatitis A and hepatitis B vaccine 3 2006 UNK 104 Unknown (UNK) comple t ed hepatitis A and hepatitis B vaccine DoD hepatitis B vaccine, adult dosage 3 2006 UNK 43 Unknown (UNK) comple t ed hepatitis B vaccine, adult dosage DoD hepatitis A vaccine, adult dosage 3 2006 UNK 52 Unknown (UNK) comple t ed hepatitis A vaccine, adult dosage DoD typhoid Vi capsular polysaccharid e vaccine 1 2006 [id number] Sanofi Pasteur (PMC) complet ed typhoid Vi capsular polysacch aride vaccine DoD influenza virus vaccine, live, attenuated, for intranasal use 1 2005 [id number] [employer]. (MED) complet ed influenza virus vaccine, live, attenuate d, for intranasa l use DoD hepatitis A and hepatitis B vaccine 2 2005 [id number] 104 [employer] (SKB) complet ed hepatitis A and hepatitis B vaccine DoD measles, mumps and rubella virus vaccine 1 2005 NONE 03 (NON) Not Given measles, mumps and rubella virus vaccine DoD varicella virus vaccine 1 2005 NONE 21 (NON) Not Given varicella virus vaccine DoD hepatitis A and hepatitis B vaccine 1 2005 [id number] 104 [employer]hine (SKB) complet ed hepatitis A and hepatitis B vaccine DoD trivalent poliovirus vaccine, live, oral 1 2005 [id number] Sanofi Pasteur (PMC) complet ed trivalent polioviru s vaccine, live, oral DoD meningococcal polysaccharid e vaccine (MPSV4) 1 2005 [id number] 32 Sanofi Pasteur (PMC) complet ed meningoco ccal polysacch aride vaccine (MPSV4) DoD tetanus toxoid, reduced diphtheria toxoid, and acellular pertu is vaccine, adsorbed 1 2005 [id number] 115 Sanofi Pasteur (PMC) complet ed tetanus toxoid, reduced diphtheri a toxoid, and acellular pertussis vaccine, adsorbed DoD Results Combined list of recent chemistry, hematology and other laboratory results from Department of Defense and Veterans Affairs, ranging from 15 months to all on record, depending upon the facility. Order Name Results Value Reference Range Date Interpretation Specimen Comments Source CBC LEUKOCYTES [#/VOLUME] IN BLOOD BY AUTOMATED COUNT 4.7 10*3/u L 3.6 - 11.2 07/28 Specimen Type: BLOOD No comment entered. Ordering Provider: SELVIN MARLEY Report Released Date/Time: Jul 28, 2024 01:13 PM Reporting Lab: [facility] [address] [place] [phone] Performing Lab: [facility] [address] [place] [phone] [facility] CBC ERYTHROCYTES [#/VOLUME] IN BLOOD BY AUTOMATED COUNT 5.01 10*6/u L 4.10 - 5.70 07/28 Specimen Type: BLOOD No comment entered. Ordering Provider: SELVIN MARLEY Report Released Date/Time: Jul 28, 2024 01:13 PM Reporting Lab: [address] [phone] Performing Lab: [address] [phone] [place] [address] CBC HEMOGLOBIN [MASS/VOLUME ] IN BLOOD 12.3 g/dL 13.1 - 16.8 07/28 L Specimen Type: BLOOD No comment entered. Ordering Provider: SELVIN MARLEY Report Released Date/Time: Jul 28, 2024 01:13 PM Reporting Lab: [facility] [address] [place] [phone] Performing Lab: [address] [phone] [place] [address] CBC HEMATOCRIT [VOLUME FRACTION] OF BLOOD 39.3 38.2 - 48.4 07/28 Specimen Type: BLOOD No comment entered. Ordering Provider: SELVIN MARLEY Report Released Date/Time: Jul 28, 2024 01:13 PM Reporting Lab: [facility] [address] [place] [phone] Performing Lab: [address] [address] [facility] CBC MCV [ENTITIC VOLUME] BY AUTOMATED COUNT 78.4 fL 80.0 - 100.0 07/28 L Specimen Type: BLOOD No comment entered. Ordering Provider: SELVIN MARLEY Report Released Date/Time: Jul 28, 2024 01:13 PM Reporting Lab: [facility] [address] [place] [address] [place] [address] Performing Lab: [facility] [address] [place] [phone] [facility] CBC MCH [ENTITIC MASS] BY AUTOMATED COUNT 24.6 pg 27.0 - 34.0 07/28 L Specimen Type: BLOOD No comment entered. Ordering Provider: SELVIN MARLEY Report Released Date/Time: Jul 28, 2024 01:13 PM Reporting Lab: [facility] [address] [place] [phone] Performing Lab: [address] [phone] [facility] CBC MCHC [MASS/VOLUME ] BY AUTOMATED COUNT 31.3 g/dL 33.0 - 36.0 07/28 L Specimen Type: BLOOD No comment entered. Ordering Provider: SELVIN MARLEY Report Released Date/Time: Jul 28, 2024 01:13 PM Reporting Lab: [facility] [address] [place] [phone] Performing Lab: [address] [phone] [facility] CBC PLATELETS [#/VOLUME] IN BLOOD BY AUTOMATED COUNT 309 10*3/u L 150 - 400 07/28 Specimen Type: BLOOD No comment entered. Ordering Provider: SELVIN MARLEY Report Released Date/Time: Jul 28, 2024 01:13 PM Reporting Lab: [facility] [address] [place] [phone] Performing Lab: [facility] [address] [place] [phone] [facility] CBC PLATELET MEAN VOLUME [ENTITIC VOLUME] IN BLOOD BY AUTOMATED COUNT 9.7 fL 7.5 - 11.2 07/28 Specimen Type: BLOOD No comment entered. Ordering Provider: SELVIN MARLEY Report Released Date/Time: Jul 28, 2024 01:13 PM Reporting Lab: [facility] [address] [facility] [address] Performing Lab: [facility] [address] [facility] [address] [facility] CBC ERYTHROCYTE DISTRIBUTION WIDTH [RATIO] BY AUTOMATED COUNT 19.5 11.8 - 15.1 07/28 H Specimen Type: BLOOD No comment entered. Ordering Provider: SELVIN MARLEY Report Released Date/Time: Jul 28, 2024 01:13 PM Reporting Lab: [facility] [address] [facility] [address] Performing Lab: [facility] [address] [facility] [address] [facility] CBC LYMPHOCYTES/ 100 LEUKOCYTES IN BLOOD BY AUTOMATED COUNT 41 07/28 Specimen Type: BLOOD No comment entered. Ordering Provider: SELVIN MARLEY Report Released Date/Time: Jul 28, 2024 01:13 PM Reporting Lab: [facility] [address] [facility] [address] Performing Lab: [facility] [address] [facility] [address] [facility] CBC MONOCYTES/10 0 LEUKOCYTES IN BLOOD BY AUTOMATED COUNT 16 07/28 Specimen Type: BLOOD No comment entered. Ordering Provider: SELVIN MARLEY Report Released Date/Time: Jul 28, 2024 01:13 PM Reporting Lab: [facility] [address] [facility] [address] Performing Lab: [facility] [address] [facility] [address] [facility] CBC NEUTROPHILS/ 100 LEUKOCYTES IN BLOOD BY AUTOMATED COUNT 39 07/28 Specimen Type: BLOOD No comment entered. Ordering Provider: SELVIN MARLEY Report Released Date/Time: Jul 28, 2024 01:13 PM Reporting Lab: [facility] [address] [facility] [phone] Performing Lab: [facility] [address] [facility] [address] [facility] CBC EOSINOPHILS/ 100 LEUKOCYTES IN BLOOD BY AUTOMATED COUNT 4 07/28 Specimen Type: BLOOD No comment entered. Ordering Provider: SELVIN MARLEY Report Released Date/Time: Jul 28, 2024 01:13 PM Reporting Lab: [facility] [address] [place] [phone] Performing Lab: [facility] [address] [place] [phone] [facility] CBC BASOPHILS/10 0 LEUKOCYTES IN BLOOD BY AUTOMATED COUNT 0 07/28 Specimen Type: BLOOD No comment entered. Ordering Provider: SELVIN MARLEY Report Released Date/Time: Jul 28, 2024 01:13 PM Reporting Lab: [facility] [address] [place] [phone] Performing Lab: [phone] [place] [address] CBC LYMPHOCYTES [#/VOLUME] IN BLOOD BY AUTOMATED COUNT 1.90 10*3/u L 0.77 - 4.50 07/28 Specimen Type: BLOOD No comment entered. Ordering Provider: SELVIN MARLEY Report Released Date/Time: Jul 28, 2024 01:13 PM Reporting Lab: [facility] [address] [place] [phone] Performing Lab: [facility] [address] [place] [phone] [facility] CBC MONOCYTES [#/VOLUME] IN BLOOD BY AUTOMATED COUNT 0.72 10*3/u L 0.19 - 0.80 07/28 Specimen Type: BLOOD No comment entered. Ordering Provider: SELVIN MARLEY Report Released Date/Time: Jul 28, 2024 01:13 PM Reporting Lab: [facility] [address] [place] [phone] Performing Lab: [facility] [address] [place] [phone] [facility] CBC NEUTROPHILS [#/VOLUME] IN BLOOD BY AUTOMATED COUNT 1.84 10*3/u L 2.10 - 8.00 07/28 L Specimen Type: BLOOD No comment entered. Ordering Provider: SELVIN MARLEY Report Released Date/Time: Jul 28, 2024 01:13 PM Reporting Lab: [address] [phone] Performing Lab: [address] [phone] [place] [address] CBC EOSINOPHILS [#/VOLUME] IN BLOOD BY AUTOMATED COUNT 0.18 10*3/u L 0.00 - 0.60 07/28 Specimen Type: BLOOD No comment entered. Ordering Provider: SELVIN MARLEY Report Released Date/Time: Jul 28, 2024 01:13 PM Reporting Lab: [address] [phone] Performing Lab: [address] [address] [facility] CBC BASOPHILS [#/VOLUME] IN BLOOD BY AUTOMATED COUNT 0.02 10*3/u L 0.00 - 0.20 07/28 Specimen Type: BLOOD No comment entered. Ordering Provider: SELVIN MARLEY Report Released Date/Time: Jul 28, 2024 01:13 PM Reporting Lab: [address] [phone] Performing Lab: [address] [address] [facility] HGA1C HEMOGLOBIN A1C/HEMOGLOB IN.TOTAL IN BLOOD 6.0 4.0 - 6.0 07/28 Specimen Type: BLOOD No comment entered. Ordering Provider: SELVIN MARLEY Report Released Date/Time: Jul 28, 2024 01:13 PM Reporting Lab: [address] [phone] Performing Lab: [address] [phone] [place] [address] TSH W/ REFLEX FT4 (STL) THYROTROPIN [UNITS/VOLUM E] IN SERUM OR PLASMA 1.057 u[IU]/ mL 0.47 - 5 07/28 Specimen Type: PLASMA No comment entered. Ordering Provider: SELVIN MARLEY Report Released Date/Time: Jul 28, 2024 01:13 PM Reporting Lab: [facility] [address] [place] [phone] Performing Lab: [facility] [address] [facility] [phone] COMPREHENSI VE METABOLIC PANEL CREATININE [MASS/VOLUME ] IN SERUM OR PLASMA 1.18 mg/dL 0.7 - 1.3 07/28 Specimen Type: PLASMA Comment: No hemolysis noted. Ordering Provider: SELVIN MARLEY Report Released Date/Time: Jul 28, 2024 01:13 PM Reporting Lab: [facility] [address] [facility] [address] Performing Lab: [facility] [address] [facility] [phone] [place] [address] COMPREHENSI VE METABOLIC PANEL UREA NITROGEN [MASS/VOLUME ] IN SERUM OR PLASMA 12.1 mg/dL 9.0 - 25.0 07/28 Specimen Type: PLASMA Comment: No hemolysis noted. Ordering Provider: SELVIN MARLEY Report Released Date/Time: Jul 28, 2024 01:13 PM Reporting Lab: [facility] [address] [facility] [address] Performing Lab: [facility] [address] [facility] [phone] [place] [address] COMPREHENSI VE METABOLIC PANEL GLUCOSE [MASS/VOLUME ] IN SERUM OR PLASMA 65 mg/dL 72 - 99 07/28 L Specimen Type: PLASMA Comment: No hemolysis noted. Ordering Provider: SELVIN MARLEY Report Released Date/Time: Jul 28, 2024 01:13 PM Reporting Lab: [facility] [address] [facility] [address] Performing Lab: [facility] [address] [facility] [address] [facility] COMPREHENSI VE METABOLIC PANEL SODIUM [MOLES/VOLUM E] IN SERUM OR PLASMA 140 meq/L 136 - 145 07/28 Specimen Type: PLASMA Comment: No hemolysis noted. Ordering Provider: SELVIN MARLEY Report Released Date/Time: Jul 28, 2024 01:13 PM Reporting Lab: [facility] [address] [facility] [address] Performing Lab: [facility] [address] [place] [phone] [facility] COMPREHENSI VE METABOLIC PANEL POTASSIUM [MOLES/VOLUM E] IN SERUM OR PLASMA 4.2 meq/L 3.5 - 5 07/28 Specimen Type: PLASMA Comment: No hemolysis noted. Ordering Provider: SELVIN MARLEY Report Released Date/Time: Jul 28, 2024 01:13 PM Reporting Lab: [facility] [address] [facility] [address] Performing Lab: [facility] [address] [place] [phone] [facility] COMPREHENSI VE METABOLIC PANEL CHLORIDE [MOLES/VOLUM E] IN SERUM OR PLASMA 108 meq/L 98 - 107 07/28 H Specimen Type: PLASMA Comment: No hemolysis noted. Ordering Provider: SELVIN MARLEY Report Released Date/Time: Jul 28, 2024 01:13 PM Reporting Lab: [facility] [address] [place] [phone] Performing Lab: [facility] [address] [place] [phone] [facility] COMPREHENSI VE METABOLIC PANEL CARBON DIOXIDE, TOTAL [MOLES/VOLUM E] IN SERUM OR PLASMA 21 meq/L 22 - 31 07/28 L Specimen Type: PLASMA Comment: No hemolysis noted. Ordering Provider: SELVIN MARLEY Report Released Date/Time: Jul 28, 2024 01:13 PM Reporting Lab: [facility] [address] [facility] [phone] Performing Lab: [facility] [address] [facility] [address] [facility] COMPREHENSI VE METABOLIC PANEL CALCIUM [MASS/VOLUME ] IN SERUM OR PLASMA 9.3 mg/dL 8.4 - 10.4 07/28 Specimen Type: PLASMA Comment: No hemolysis noted. Ordering Provider: SELVIN MARLEY Report Released Date/Time: Jul 28, 2024 01:13 PM Reporting Lab: [facility] [address] [place] [phone] Performing Lab: [facility] [address] [facility] [address] [facility] COMPREHENSI VE METABOLIC PANEL PROTEIN [MASS/VOLUME ] IN SERUM OR PLASMA 7.5 g/dL 6 - 8.6 07/28 Specimen Type: PLASMA Comment: No hemolysis noted. Ordering Provider: SELVIN MARLEY Report Released Date/Time: Jul 28, 2024 01:13 PM Reporting Lab: [facility] [address] [place] [phone] Performing Lab: [facility] [address] [place] [phone] [facility] COMPREHENSI VE METABOLIC PANEL ALBUMIN [MASS/VOLUME ] IN SERUM OR PLASMA 4.2 g/dL 3.4 - 5 07/28 Specimen Type: PLASMA Comment: No hemolysis noted. Ordering Provider: SELVIN MARLEY Report Released Date/Time: Jul 28, 2024 01:13 PM Reporting Lab: [facility] [address] [facility] [address] Performing Lab: [facility] [address] [place] [phone] [facility] COMPREHENSI VE METABOLIC PANEL BILIRUBIN.TO PAULINO [MASS/VOLUME ] IN SERUM OR PLASMA 0.2 mg/dL 0.2 - 1.2 07/28 Specimen Type: PLASMA Comment: No hemolysis noted. Ordering Provider: SELVIN MARLEY Report Released Date/Time: Jul 28, 2024 01:13 PM Reporting Lab: [facility] [address] [facility] [phone] Performing Lab: [facility] [address] [place] [phone] [facility] COMPREHENSI VE METABOLIC PANEL ALKALINE PHOSPHATASE [ENZYMATIC ACTIVITY/VOL UME] IN SERUM OR PLASMA 48 U/L 40 - 150 07/28 Specimen Type: PLASMA Comment: No hemolysis noted. Ordering Provider: SELVIN MARLEY Report Released Date/Time: Jul 28, 2024 01:13 PM Reporting Lab: [facility] [address] [facility] [phone] Performing Lab: [facility] [address] [place] [phone] [facility] COMPREHENSI VE METABOLIC PANEL ASPARTATE AMINOTRANSFE RASE [ENZYMATIC ACTIVITY/VOL UME] IN SERUM OR PLASMA 23 U/L 5 - 34 07/28 Specimen Type: PLASMA Comment: No hemolysis noted. Ordering Provider: SELVIN MARLEY Report Released Date/Time: Jul 28, 2024 01:13 PM Reporting Lab: [facility] [address] [place] [phone] Performing Lab: [facility] [address] [place] [phone] [facility] COMPREHENSI VE METABOLIC PANEL ALANINE AMINOTRANSFE RASE [ENZYMATIC ACTIVITY/VOL UME] IN SERUM OR PLASMA 16 U/L 8 - 40 07/28 Specimen Type: PLASMA Comment: No hemolysis noted. Ordering Provider: SELVIN MARLEY Report Released Date/Time: Jul 28, 2024 01:13 PM Reporting Lab: [facility] [address] [facility] [phone] Performing Lab: [facility] [address] [place] [phone] [facility] COMPREHENSI VE METABOLIC PANEL GLOMERULAR FILTRATION RATE/1.73 SQ M.PREDICTED [VOLUME RATE/AREA] IN SERUM, PLASMA OR BLOOD BY CREATININE-B ASED FORMULA (CKD-EPI 2020) 81.0 60 07/28 Specimen Type: PLASMA Comment: No hemolysis noted. Ordering Provider: SELVIN MARLEY Report Released Date/Time: Jul 28, 2024 01:13 PM Reporting Lab: [facility] [address] [facility] [phone] Performing Lab: [facility] [address] [facility] [phone] [facility] LIPID PANEL (STL) CHOLESTEROL [MASS/VOLUME ] IN SERUM OR PLASMA 298 mg/dL 0 - 200 07/28 H Specimen Type: PLASMA Comment: No hemolysis noted. Ordering Provider: SELVIN MARLEY Report Released Date/Time: Jul 28, 2024 01:13 PM Reporting Lab: [facility] [address] [facility] [phone] Performing Lab: [facility] [address] [facility] [phone] [facility] LIPID PANEL (STL) TRIGLYCERIDE [MASS/VOLUME ] IN SERUM OR PLASMA 94 mg/dL 0 - 150 07/28 Specimen Type: PLASMA Comment: No hemolysis noted. Ordering Provider: SELVIN MARLEY Report Released Date/Time: Jul 28, 2024 01:13 PM Reporting Lab: [facility] [address] [facility] [phone] Performing Lab: [facility] [address] [facility] [phone] [facility] LIPID PANEL (STL) CHOLESTEROL IN LDL [MASS/VOLUME ] IN SERUM OR PLASMA BY CALCULATION 229 mg/dL 07/28 Specimen Type: PLASMA Comment: No hemolysis noted. Ordering Provider: SELVIN MARLEY Report Released Date/Time: Jul 28, 2024 01:13 PM Reporting Lab: [facility] [address] [facility] [phone] Performing Lab: [facility] [address] [facility] [phone] [facility] LIPID PANEL (STL) CHOLESTEROL IN HDL [MASS/VOLUME ] IN SERUM OR PLASMA 50 mg/dL 40 07/28 Specimen Type: PLASMA Comment: No hemolysis noted. Ordering Provider: SELVIN MARLEY Report Released Date/Time: Jul 28, 2024 01:13 PM Reporting Lab: [facility] [address] [facility] [address] Performing Lab: [facility] [address] [facility] [phone] [facility] Vital Signs Combined list of inpatient and outpatient Vital Signs from Department of Defense and Veterans Affairs, ranging from 12 months to all on record, depending upon the facility. Vital Sign Value Date Comments Source SYSTOLIC BLOOD PRESSURE 145 01/17/20 08:50:42 [facility] DIASTOLIC BLOOD PRESSURE 94 025 08:50:42 [facility] PULSE OXIMETRY 100 01/16/2025 08:50:42 [facility] WEIGHT 179.3 01/16/2025 08:50:42 [facility] BMI 26 kg/m2 01/16/2025 08:50:42 [facility] PAIN 0 01/16/2025 08:50:42 [facility] HEIGHT 70 01/16/2025 08:50:42 [facility] TEMPERATURE 97.3 01/16/2025 08:50:42 [facility] PULSE 106 01/16/2025 08:50:42 [facility] RESPIRATION 16 01/16/2025 08:50:42 [facility] SYSTOLIC BLOOD PRESSURE 146 01/08/20 25 13:40:23 [facility] DIASTOLIC BLOOD PRESSURE 88 025 13:40:23 [facility] PULSE OXIMETRY 9 01/07/2025 13:40:23 [facility] WEIGHT 177 01/07/2025 13:40:23 [facility] BMI 25 kg/m2 01/07/2025 13:40:[address] [facility] PAIN 4 01/07/2025 13:40:23 [facility] HEIGHT 70 01/07/2025 13:40:[address] [facility] TEMPERATURE 97.8 01/07/2025 13:40:[address] [facility] PULSE 82 01/07/2025 13:40:23 [facility] RESPIRATION 20 01/07/2025 13:40:[address] [facility] SYSTOLIC BLOOD PRESSURE 141 07/28/20 24 12:34:[address] [facility] DIASTOLIC BLOOD PRESSURE 89 024 12:34:06 [facility] PULSE OXIMETRY 98 07/28/2024 12:34:[address] [facility] WEIGHT 172.4 07/28/2024 12:34:06 [facility] BMI 25 kg/m2 07/28/2024 12:34:[address] [facility] PAIN 0 07/28/2024 12:34:[address] [facility] HEIGHT 70 07/28/2024 12:34:06 [facility] TEMPERATURE 98.4 07/28/2024 12:34:06 [facility] PULSE 104 07/28/2024 12:34:06 [facility] RESPIRATION 18 07/28/2024 12:34:06 [facility] SYSTOLIC BLOOD PRESSURE 122 04/23/20 24 12:49:26 [facility] DIASTOLIC BLOOD PRESSURE 80 02 [id number]|2025-03-12 08:05:00|2025-03-12 08:05:00|XMS_ITS|[employer]|External Medical Summaries|[id number]|" Clinical Summary Created on: March 12, 2025 Jeffery Romo : 1985 Sex: Male Author Organization [facility] Address [address] [place] [address] Care Team Providers Care Systematic Theology Professor Name Role Phone Judy Persaud MD Primary Care Provider [phone] Allergies No known active allergies Medications No known medications Family History Medical History Relation Comments No Known Problems Father No Known Problems Maternal Grandfather No Known Problems Maternal Grandmother No Known Problems Mother No Known Problems Paternal Grandfather No Known Problems Paternal Grandmother Relation Status Comments Father Maternal Grandfather Maternal Grandmother Mother Paternal Grandfather Paternal Grandmother Social History Tobacco Use Types Packs/Day Years Used Date Smoking Tobacco: Every Day Cigarettes Smokeless Tobacco: Never Tobacco Cessation:Ready to Q uit: Not Asked; Counseling Given: Not Answered Alcohol Use Standard Drinks/Week Comments Yes 20 (1 standard drink = 0.6 oz pu re alcohol) Drinks daily Sex and Gender Information Value Date Recorded Sex Assigned at Not on file Legal Sex Male 7:29 PM CDT Gender Identity Not on file Sexual Orientation Not on file Last Filed Vital Signs Vital Sign Reading Time Taken Comments Blood Pressure 107/73 06/14/2024 7:00 AM CDT Pulse 78 06/14/2024 7:00 AM CDT Temperature 36.8 C (98.2 F) 06/14/2024 4:36 AM CDT Respiratory Rate 16 06/14/2024 7:00 AM CDT Oxygen Saturation 97% 06/14/2024 7:00 AM CDT Inhaled Oxygen Concentration - - Weight 81.6 kg (180 lb) 06/14/2024 4:36 AM CDT Height 177.8 cm (5' 10 ) 06/14/2024 4:36 AM CDT Body Mass Index 25.83 06/14/2024 4:36 AM CDT Plan of Treatment Health Maintenance Due Date Last Done Comments Annual Physical 1988 Hepatitis C 2003 Pneumococcal Vaccine: Pediatrics (0 to 5 Years) and At-Risk Patients (6 to 49 Years) (1 of 2 - PCV) 2004 DTaP, Tdap and Td Vaccines (2 - Td or Tdap) 06/15/2016 06/15/2006 COVID-19 Vaccine ( - 2023- season) 2024 Meningococcal Vaccine Aged Out 06/15/2006 No luz elena vahid eligible based on patient's age to complete this topic Hepatitis B Vaccines Completed 01/09/2007, 01/05/2007, 07/18/2006, Additional history exists HPV Vaccines Aged Out No longer eligi ble based on patient's age to complete this topic Meningococcal B Vaccine Aged Out No l onger eligible based on patient's age to complete this topic RSV Immunizations Under 20 Months Aged Out No longer eligible based on patient's age to complete this topic [place] [address] [place] [address] Care Teams Systematic Theology Professor Relationship Specialty Start Date End Date Judy Persaud MD [address] [facility] [place] 2[place] [address] [place] [address] PCP - General FAMILY PRACTICE 06/14/24 "
--- OUTSIDE RECORDS SUMMARY | 2025-03-12 08:05 | XMS_ITS | Encounter Summary ---
Author Name [facility] [place] Organization [facility] [place] Address [address] [place] [address] Care Team Providers Care Sustain Engineer Name Role Phone ONUR MARLEY Primary Care Provider Unavailab le Insurance Providers: All historical and current Section Date Range: From patient's date of to the date document was created. This section includes the names of all active insurance providers for the patient. Insurance Provider Type of Coverage Plan Name Start of Policy Coverage End of Policy Coverage Group Number Member ID Insurance Provider's Telephone Number Policy Boyd's Name Patient's Relationship to Policy Boyd [employer] PREFERRED PROVIDER ORGANIZAT ION (PPO) BOILE BAKARI RS Oct 29, 2017 [id number] YANET BRISCOE PATIENT [employer] BE[employer]IOR[employer] MENTAL HEALTH BOILE RMAKE RS NATIO NA Oct 29, 2017 [id number] MOUSERYANET PATIENT [employer] MENTAL HEALTH BOILE RMAKE RS NATIO NA Oct 29, 2017 [id number] [phone] YANET BRISCOE PATIENT [employer] PRESCRIPT ION BOILM AMY Oct 29, 2017 [id number] [phone] MOUSERYANET PATIENT [employer] PRESCRIPT ION RX PLAN Oct 29, 2017 [id number] [phone] YANET BRISCOE PATIENT Selected Encounter This section includes the information on record at [place] for the Encounter. Date/Time Encounter Type Encounter Description Reason Provider Source Jan 16, 2025 09:00 AM OFFICE O/P NEW MOD 45 MIN GENERAL SURGERY ICD-10-CM K40.90 Unil inguinal hernia, w/o obst or gangr, not spcf as recur FABIEN WONG [facility] Encounter Template Text not used by [place] Assessments - Encounter Diagnoses This section includes the primary and secondary diagnoses documented for the Encounter. Date/Time Primary/Secondary Diagnosis Diagnosis Name Provider Source Jan 27, 2025 10:57 AM PRIMARY Unil inguinal hernia, w/o obst or gangr, not spcf as recur TOSHIA SUN [facility] Plan of Treatment: Future Appointments (+ 6 months) and Future Tests (+/- 45 days) The Plan of Treatment section includes future care activities for the patient from all [place] treatmentfacilities. This section includes future appointments and future orders which are active, pending or scheduled. Future Appointments This section includes appointments that were scheduled to occur 6 months from the date of the Encounter, up to a maximum of 20 appointments. The data comes from all [place] treatment facilities. Appointment Date/Time Appointment Type Appointme nt Facility Name Jul 08, 2025 03:00 PM AMBULATORY - MEDICINE [facility] Active, Pending, and Scheduled Orders This section includes a listing of several types of active, pending, and scheduled orders, including clinic medications orders, diagnostic test orders, procedure orders and consult orders; where the start date of the order is 45 days before the date of the Encounter or 45 days after the date of theEncounter. The data comes from all [place] treatment facilities. Test Date/Time Test Type Test Details Facility Name Feb 24, 2025 12:00 AM Laboratory - Chemistry Order CBC BLOOD SP [facility] Feb 24, 2025 12:00 AM Laboratory - Chemistry Order COMPREHENSIVE METABOLIC PANEL GREEN LI/HEP BLD/PLAS PLASMA SP [facility] Feb 24, 2025 03:12 PM Procedure Order CP EKG STL CP EKG - STL Proc [facility] Coordinator's Choice [facility] Vital Signs: All taken on the encounter date This section contains inpatient and outpatient Vital Signs collected on the date of the Encounter. Date/Time Temperature Pulse Blood Pressure Respiratory Rate SP02 Pain Height Weight Body Mass Index Source Jan 16, 2025 08:50 AM 97.3 106 145/94 16 100 0 70 179.3 26 [facility] Social History: Smoking Status (Most current) and Tobacco Use (All prior to encounter date) This section includes the most current, and the historical, smoking and tobacco- related health factors from the [place] facility where the Encounter took place. Current Smoking Status This section includes the most current smoking, or tobacco-related health factor, from the [place] facility where the Encounter took place. Date/Time Current Smoking Status Comment Facil ity Jan 17, 2024 02:55 PM VA-TOBACCO USER EVERY DAY [facility] Tobacco Use History This section includes a history of the smoking, or tobacco-related health factors, that were collected on or before the date of the Encounter. The data comes from the [place] facility where the Encounter took place. Date/Time Smoking Status/Tobacco Use Comment F acility Jan 17, 2024 02:55 PM VA-TOBACCO USE ADVICE [facility] Jan 17, 2024 02:55 PM VA-TOBACCO USE ENGINEERING INSTRUCTOR NO [facility] Jan 17, 2024 02:55 PM VA-TOBACCO USE MED NO [facility] Jan 17, 2024 02:55 PM VA-TOBACCO USE WI 30 MIN OF WAKEUP [facility] Jan 17, 2024 02:55 PM VA-TOBACCO USER EVERY DAY [facility] Encounter Notes: All associated encounter notes This section contains the clinical notes associated to the Encounter. Date/Time Encounter Note(s) Provider Source March 03, 2025 09:43 AM ADDENDUM: LOCAL TITLE: Addendum STANDARD TITLE: ADDENDUM DATE OF NOTE: MARCH 03, 2025@09:43:50 ENTRY DATE: MARCH 03, 2025@09:43:51 AUTHOR: ULISES PATLE EXP COSIGNER: URGENCY: STATUS: COMPLETED Called patient to confirm his surgery. Patient stated he called 2 wks ago and asked to have his surgery cancelled. Patient stated he is getting surgery done with his own insurance out in the community. Surgery next week is cancelled. /brandan/ ULISES PATEL RN, BSN REGISTERED NURSE Signed: 03/03/2025 09:45 Receipt Acknowledged By: 03/05/2025 07:35 /es/ JEANCARLOS MOORE MD Staff Physician, General Surgery I 03/03/2025 09:48 /brandan/ THERESA FLORES Physician Apartment Property Manager, Anesthesiology --- Original Document --- 02/09/25 GENERAL SURGERY NOTE STL: If a patient should call inquiring about this procedure or to cancel, please dial extension [phone] or [phone]. You can also send a teams message to Arianna Renner or Stella Moore. It is important that direct communication be made with a member of the surgery team. Please do not simply leave a message in the chart. Procedure: RIHR with mesh Pt. agreeable to this surgical date: 03/10/25 arriving 0700 to [facility] Will likely be discharged the same day and will need school bus driver/mechanic to go home after surgery. Pt. verbalized understanding NPO after midnight before surgery. Patient voiced understanding that should they fail to comply with these instructions their case will be cancelled and may not be rescheduled for several weeks. Take ususal morning medications the day of surgery with sips of water/no coffee. Patient instructed to hold the following medications: na Do not bring your medications. Any medications you need will be provided for you. Bring your inhalers(use morning of surgery) and CPAP machine, if you use them. Preoperative printout bathing instruction reviewed and given to patient. Chlorhexidine preoperative liquid soap has been ordered and will be mailed via pharmacy. Take shower with preoperative liquid soap the night before surgery and the morning of surgery. Preop letter included the above information given to pt during clinic visit Pt. verbalized all understanding of the above information. Pt. encouraged to call surgical dept for further questions or concerns. Surgical dept extension is included within the preop letter. Pt. made aware anesthesia consult will be submitted. /brandan/ ARIANNA RENNER PA-C Physician Apartment Property Manager, General Surgery Signed: 02/09/2025 08:57 Receipt Acknowledged By: 02/12/2025 07:21 /brandan/ JEANCARLOS MOORE MD Staff Physician, General Surgery I 02/23/2025 ADDENDUM STATUS: COMPLETED Attempted to call patient to remind him about labs and EKG prior to surgery. NO answer so left message with call back number. /orquidea PATEL RN, BSN REGISTERED NURSE Signed: 02/23/2025 10:24 02/24/2025 ADDENDUM STATUS: COMPLETED Attempted to call patient to remind him about labs and EKG. No answer so left message with call back number. /orquidea PATEL RN, BSN REGISTERED NURSE Signed: 02/24/2025 15:11 02/25/2025 ADDENDUM STATUS: COMPLETED Attempted to call patient to remind him about labs and EKG prior to surgery. No answer so left message with call back number. /orquidea PATEL RN, BSN REGISTERED NURSE Signed: 02/25/2025 11:41 02/27/2025 ADDENDUM STATUS: COMPLETED Attempted to call patient again regarding his labs and EKG. No answer so left message with call back number. /orquidea PATEL RN, BSN REGISTERED NURSE Signed: 02/27/2025 13:31 ULISES PATEL [facility] Feb 09, 2025 08:56 AM SURGERY NOTE: LOCAL TITLE: GENERAL SURGERY NOTE STL STANDARD TITLE: SURGERY NOTE DATE OF NOTE: FEB 09, 2025@08:56 ENTRY DATE: FEB 09, 2025@08:56:29 AUTHOR: ARIANNA RENNER EXP COSIGNER: URGENCY: STATUS: COMPLETED GENERAL SURGERY NOTE STL Has ADDENDA If a patient should call inquiring about this procedure or to cancel, please dial extension [phone] or [phone]. You can also send a teams message to Arianna Renner or Stella Moore. It is important that direct communication be made with a member of the surgery team. Please do not simply leave a message in the chart. Procedure: RIHR with mesh Pt. agreeable to this surgical date: 03/10/25 arriving 0700 to [facility] Will likely be discharged the same day and will need school bus driver/mechanic to go home after surgery. Pt. verbalized understanding NPO after midnight before surgery. Patient voiced understanding that should they fail to comply with these instructions their case will be cancelled and may not be rescheduled for several weeks. Take ususal morning medications the day of surgery with sips of water/no coffee. Patient instructed to hold the following medications: na Do not bring your medications. Any medications you need will be provided for you. Bring your inhalers(use morning of surgery) and CPAP machine, if you use them. Preoperative printout bathing instruction reviewed and given to patient. Chlorhexidine preoperative liquid soap has been ordered and will be mailed via pharmacy. Take shower with preoperative liquid soap the night before surgery and the morning of surgery. Preop letter included the above information given to pt during clinic visit Pt. verbalized all understanding of the above information. Pt. encouraged to call surgical dept for further questions or concerns. Surgical dept extension is included within the preop letter. Pt. made aware anesthesia consult will be submitted. /brandan/ ARIANNA RENNER PA-C Physician Apartment Property Manager, General Surgery Signed: 02/09/2025 08:57 Receipt Acknowledged By: 02/12/2025 07:21 /brandan/ JEANCARLOS MOORE MD Staff Physician, General Surgery I 02/23/2025 ADDENDUM STATUS: COMPLETED Attempted to call patient to remind him about labs and EKG prior to surgery. NO answer so left message with call back number. /orquidea PATEL RN, BSN REGISTERED NURSE Signed: 02/23/2025 10:24 02/24/2025 ADDENDUM STATUS: COMPLETED Attempted to call patient to remind him about labs and EKG. No answer so left message with call back number. /orquidea PATEL RN, BSN REGISTERED NURSE Signed: 02/24/2025 15:11 02/25/2025 ADDENDUM STATUS: COMPLETED Attempted to call patient to remind him about labs and EKG prior to surgery. No answer so left message with call back number. /orquidea PATEL RN, BSN REGISTERED NURSE Signed: 02/25/2025 11:41 02/27/2025 ADDENDUM STATUS: COMPLETED Attempted to call patient again regarding his labs and EKG. No answer so left message with call back number. /orquidea PATEL RN, BSN REGISTERED NURSE Signed: 02/27/2025 13:31 03/03/2025 ADDENDUM STATUS: COMPLETED Called patient to confirm his surgery. Patient stated he called 2 wks ago and asked to have his surgery cancelled. Patient stated he is getting surgery done with his own insurance out in the community. Surgery next week is cancelled. /orquidea PATEL RN, BSN REGISTERED NURSE Signed: 03/03/2025 09:45 Receipt Acknowledged By: * AWAITING SIGNATURE * JEANCARLOS MOORE 03/03/2025 09:48 /es/ THERESA FLORES Physician Apartment Property Manager, Anesthesiology ARIANNA RENNER [facility] Jan 16, 2025 09:13 AM SURGERY CONSULT: LOCAL TITLE: GENERAL SURGERY CONSULT ST STANDARD TITLE: SURGERY CONSULT DATE OF NOTE: JAN 16, 2025@09:13 ENTRY DATE: JAN 16, 2025@09:13:29 AUTHOR: TOSHIA SUN COSIGNER: FABIEN WONG URGENCY: STATUS: COMPLETED GENERAL SURGERY CONSULT STL Has ADDENDA Gen Surg Clinic Note: GENERAL SURGERY I CLINIC VISIT CHIEF COMPLAINT: inguinal hernia - right HISTORY OF PRESENT ILLNESS: 39yo w/ PMH of hemorrhoids, smoker, HLD who is presenting for a right inguinal hernia evaluation. He was evaluated by his PCP and they recommended general surgery evaluation. He describes he has had this bulge for about a year. He has a near constant golf ball size bulge in the groin. Notes associated pain that radiats down the medial right leg. Denies obstructive symptoms. Bulge and pain are worsened by lifting heavy objects, coughing, or heaving. He was worked up for this at a [facility] and offered surgery but had insurance issues. 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 Denies fever/chills/nausea/vomitin g/chest pain/shortness of breath. PAST MEDICAL HISTORY: 1) Hemorrhoids 2) Past history of procedure 3) Tobacco User ([facility] [id number]) 4) Exposure to potentially hazardous substance ([facility] [id number]) 5) Hyperlipidemia PAST SURGICAL HISTORY: umbilical hernia repair x2, one when 5 years old and one 20 years ago with mesh ([place]) MEDICATIONS: Active Outpatient Medications (excluding Supplies): Issue Date Status Last Fill Active Outpatient Medications Refills Expiration = 1) ROSUVASTATIN CA 20MG TAB Qty: 15 for 30 days ACTIVE/PARKEDIssue: 01/07/25 Sig: TAKE ONE-HALF TABLET BY MOUTH EVERY Refills: 11 Last : 01/08/25 EVENING Expr : 01/08/26 Indication: FOR HIGH CHOLESTEROL Issue Date Status Last Fill Pending Outpatient Medications Refills Expiration = 1) CHLORHEXIDINE GLUCONATE 4% TOP LIQUID Qty: PENDING 120 Sig: APPLY MODERATE AMOUNT TO AFFECTED Refills: 0 AREA(S) TWICE Indication: FOR SKIN DISINFECTION 2 Total Medications ALLERGIES: Patient has answered NKA ROS: Review of systems as per HPI and additionally notable for Constitutional: No fever, No weakness/ fatigue Cardiovascular: No chest pain, No palpitations Respiratory: No shortness of breath, No cough Genitourinary: No dysuria, No polyuria Neurology: No headache, No tremors Musculoskeletal: No joint pain, No back pain Skin: No rash, No itching Psychiatric: No anxiety, No depression PHYSICAL EXAM: Date Vital Measurement Qualifiers 01/16/2025 08:50 Temp F (C) 97.3 (36.3) Pulse 106 Respir 16 BP 145/94 Ht in (cm) 70 (177.80) Wt lbs (kg)[BMI] 179.3 (81.33)[26] Pain 0 POx (L/Min)(%) 100 General No acute distress, well-nourished, appropriate HEENT Moist mucous membranes, no lesion or exudate Neck - Supple, no thyromegaly CV Normal rate, regular rhythm Lung- Symmetric chest rise and fall, unlabored breathing on Abd - soft, non-tender, non-distended Groin - golf ball size hernia in the right groin, easily reducible. no hernia noted on the the Left. no overlying skin changes. Ext - no edema, no cyanosis Lymph - no cervical or supraclavicular LAD Skin - no rashes, nodules, or jaundice LABS: WBC 4.7 10*3/uL 07/28/2024 13:25 RBC 5.01 10*6/uL 07/28/2024 13:25 HGB 12.3 L g/dL 07/28/2024 13:25 HCT 39.3 % 07/28/2024 13:25 MCV 78.4 L fL 07/28/2024 13:25 MCH 24.6 L pg 07/28/2024 13:25 MCHC 31.3 L g/dL 07/28/2024 13:25 RDW 19.5 H % 07/28/2024 13:25 PLT 309 10*3/uL 07/28/2024 13:25 MPV 9.7 fL 07/28/2024 13:25 NEUTROPHILS, AUTO % 39 % 07/28/2024 13:25 LYMPHOCYTES, AUTO % 41 % 07/28/2024 13:25 MONOCYTES, AUTO % 16 % 07/28/2024 13:25 EOSINOPHILS, AUTO % 4 % 07/28/2024 13:25 BASOPHILS, AUTO % 0 % 07/28/2024 13:25 NEUTROPHILS, ABSOLUTE 1.84 L 10*3/uL 07/28/2024 13:25 LYMPHOCYTES, ABSOLUTE 1.90 10*3/uL 07/28/2024 13:25 MONOCYTES, ABSOLUTE 0.72 10*3/uL 07/28/2024 13:25 EOSINOPHILS, ABSOLUTE 0.18 10*3/uL 07/28/2024 13:25 BASOPHILS, ABSOLUTE 0.02 10*3/uL 07/28/2024 13:25 SODIUM 140 mEq/L 07/28/2024 13:25 POTASSIUM 4.2 mEq/L 07/28/2024 13:25 CHLORIDE 108 H mEq/L 07/28/2024 13:25 UREA NITROGEN 12.1 mg/dL 07/28/2024 13:25 CREATININE 1.18 mg/dL 07/28/2024 13:25 CALCIUM 9.3 mg/dL 07/28/2024 13:25 PROTEIN 7.5 g/dL 07/28/2024 13:25 ALBUMIN 4.2 g/dL 07/28/2024 13:25 ALKALINE PHOSPHATASE 48 U/L 07/28/2024 13:25 ALT/SGPT 16 U/L 07/28/2024 13:25 AST/SGOT 23 U/L 07/28/2024 13:25 TOTAL BILIRUBIN 0.2 mg/dL 07/28/2024 13:25 CARBON DIOXIDE 21 L mEq/L 07/28/2024 13:25 GLUCOSE 65 L mg/dL 07/28/2024 13:25 EGFR (CKD-EPI 2020) 81.0 07/28/2024 13:25 No INR EO data found IMAGING: No Radiology exams found. No Radiology exams found. No Radiology exams found. IMAGING IMPRESSION SELECTED No selection items chosen for this component. PROGRESS NOTES SELECTED No data available for: CAROTID U/S EVALUATION MA No data available for: CT ABDOMEN W/CONT CT ABDOMEN W/O CONT CT ABDOMEN W&W/O CONT CT PELVIS W/CONT CT PELVIS W/O CONT CT PELVIS WITH AND WITHOUT CONTRAST CT THORACIC SPINE W/CONT CT THORACIC SPINE W/O CONT CT ABDOMEN AND PELVIS W/CONTRAST CT ABDOMEN AND PELVIS W/O CONTRAST CT ABDOMEN AND PELVIS WITH AND WITHOUT CONTRAST CT THORACIC SPINE W/O&W CONTRAST ASSESSMENT/PLAN: 39yoM PPD smoker, prior umbilical hernia repair w/ mesh, presenting with 1 year hx of right groin bulge and occasional pain concerning for a right inguinal hernia. He would benefit from repair of this. - discussed the importance of smoking cessation - will plan for a right inguinal hernia with mesh, open - labs and EKG ordered FUTURE APPOINTMENTS: 07/08/2025 15:00 [facility] C[facility] PACT 7 PCP /brandan/ TOSHIA SUN Lining Layer Signed: 01/16/2025 09:27 /brandan/ FABIEN WONG MD Staff Physician, SICU Theater Teacher Cosigned: 01/16/2025 14:47 01/16/2025 ADDENDUM STATUS: COMPLETED 39 yo M 1ppd smoker who works in heavy labor in boiler facility with right inguinal hernia. He states that it bulges with any lifting and causes significant discomfort. Denies scrotal component. With as active as he is, he desires repair and knows he will need to take time off to recover. Denies bowel symptomns or bulge on the left Prior open umbo repair with mesh many years prior BMI 26 AAO x3 raspy voice, respirations even and unlabored abdomen soft, flat, R inguinal hernia palpable Unable to feel any defects on the left Discussed risks and benefits of operation repair, expectations and recovery and all questions were answered. Advised to stop smoking torsten for best chance of healing and recovery for surgery. He states that he has nicotine patches at home. Risks include pain, bleeding, infection, chronic pain, nerve entrapment, reoccurance, need for reoperation. He states understanding and wishes to proceed at the next available opportunity. Book for R inguinal hernia repair /es/ FABIEN WONG MD Staff Physician, SICU Theater Teacher Signed: 01/16/2025 14:57 TOSHIA SUN [facility]
== END 2025-03-12 07:58 | disposition home or self-care (01) ==
LOC: ANHSURGERY 08:03
PROVIDERS: PCP Family Medicine; Visit Provider Surgery
DX: K40.90 Unilateral inguinal hernia, without obstruction or gangrene, not specified as recurrent (principal)
CPT/HCPCS: 36415; 86850; 86900; 86901

== ENCOUNTER 2025-03-16 01:24 | Day surgery (SDC) | payer OTHER, SELFPAY ==
[2025-03-09 12:27] VITALS: BMI 25.9
--- NOTE | 2025-03-09 12:34 | PC.NURSE ---
Report to the Outpatient Waiting Room, entrance under the green pavilion located off [facility], at time _0600_ on date _[id number]_. Planned Procedure Time: _0700_. Time changes happen often and if your time is changed the preop area will call you the afternoon before. - You and your visitor will be asked to self-screen and do not enter if you have any COVID symptoms. Please call surgeon if you need to reschedule. - A mask is optional within the hospital at this time. Patients may have clear liquids (water, carbonated beverages, clear teas, apple juice) until 3 hours prior to surgery with a maximum of 20 ounces. - No food from midnight until time of surgery and no smoking, or chewing tobacco (or any form of nicotine). No chewing gum, candy or mints. Take only the following medications with a SIP of water on the morning of surgery: ___None____ DO NOT STOP ANY OF YOUR OTHER PRESCRIPTION MEDICATIONS PRIOR TO SURGERY EXCEPT THE FOLLOWING Hold all vitamins and supplements for 3 days per anesthesiologist. Medications to discontinue per physician Date to take last dose Please no make-up, nail luxembourgish, hairspray, perfume, deodorant, or body powder the day of surgery. No jewelry (including any body piercings) or valuables the day of surgery, leave them at home. Please take a shower or bath the night before, or the morning of, surgery with an antibacterial soap. Wear comfortable, loose fitting clothing. - Jewelry must be removed prior to entering the operating room. Rings and piercings that are not removed may be cut off. - The hospital will not accept responsibility for valuables. - Please leave all valuables, including medications, at home the day of surgery. If you are going home after surgery, a licensed regional tanker truck driver must drive you home. - NO public transportation without another adult if you receive anesthesia. - We recommend that an adult stay with you for 24 hours following discharge. - We also recommend that you do not drive, make important decision, drink alcoholic beverages, or take any drugs that were not prescribed by your health care provider for at least 24 hours after your discharge time. Follow any additional instructions given to you from your surgeon. Telephone instructions given to __Kyle___and asked if any additional questions and then verbalized understanding. Patient advised to call surgeon office or pre surgery nurse liaison [phone] if any additional questions.
--- NOTE | 2025-03-13 15:30 | WPDANESEPPF ---
Anes - Initial Pre Proc Eval Procedure: Operation Date: 03/16/25 07:30 Proposed Procedures p Robotic Assisted Laparoscopic Right Inguinal Hernia Repair with Mesh, Possible Open - Nato Eden MD Date/Time: 03/13/25 15:30 Surgeon: Nato Eden MD Pre Op Diagnosis: reducible right inguinal hernia Patient Data Age: 39 Gender: M Height: 1.78 m Weight: 81.8 kg Allergies Allergy/AdvReac Type Severity Reaction Status Date / Time lisinopril AdvReac cough Verified 03/16/25 06:54 Home Medications Medication Instructions Recorded Confirmed Type No Home Medications 03/09/25 03/09/25 History Patient hx anesthesia problems: none Family hx anesthesia problems: none Results Review: All pre-operative results and documents have been reviewed as part of the pre-operative evaluation. [facility] Past Medical History Medical History (Updated 02/24/25 @ 08:46 by Lucille Huffman MA) Hypertension benign essential hypertension Cocaine use disorder Hematochezia Abnormal weight loss Decreased appetite Early satiety HEATHER (iron deficiency anemia) Anal fissure Benign essential hypertension Surgical History Surgical History History of umbilical hernia repair ~ 1988 - umbilical hernia repair without mesh History of umbilical hernia repair 2006 - umbilical hernia repair with mesh performed while stationed in [place] Family History Family History Grandparent Family history of migraine headaches Family history of glaucoma Hypertension Family history of alcoholism Family history of cardiovascular disease Acute myocardial infarction Family history of arthritis Family history of pulmonary embolism Social History Social History (Updated 02/24/25 @ 08:48 by Lucille Huffman MA) Smoking packs per day: 1 Smoking cigarettes per day: 20.0 Years smoked: 18 Smoking pack-years: 18.00 Smoking status: Current every day smoker Tobacco type: cigarettes Second hand tobacco smoke exposure: No Alcohol intake: current Drinks per week: 20 Substance use: current Substance use type: marijuana Other substance usage details: Daily Last use: 02/29/24 Do You Feel Safe in your Home?: Yes Lack of Transportation: No Lack of Food: Never True Current Housing: I Have Housing Concerned About Future Housing: No Difficulty Paying Gas/Electric Bills: No Difficulty Paying for Meds: No Currently Unemployed: No Education: High School Diploma/GED Living arrangements: alone Occupation/Education: occupation Gender identity (if verbalized by the patient): Male Spiritual care concerns: No Anes - Eval Final PreProcedure Day of Procedure 03/13/25 15:30 Patient weight: normal Heart: regular rate and rhythm Lungs: clear to auscultation Airway: Mallampati scale class II Neurological: alert and oriented Last oral intake: >/= 8 hours ASA classification: II Emergent: no Anesthetic plan: proceed Anesthesia type and monitoring: general ETT and standard monitoring Results Review: All pre-operative results and documents have been reviewed as part of the pre-operative evaluation. Informed Consent: The patient's anesthetic plan and its attendant risks and benefits were discussed with the patient/family/POA. Questions were solicited and answers provided to the satisfaction of the patient/family/POA.
[2025-03-16] VITALS (9 sets, daily range): BP systolic 105–134; BP diastolic 62–82; PULSE 69–93; RESP 13–20; TEMP 36.1–36.9; O2SAT 94–100; BMI 25.2
--- OUTSIDE RECORDS SUMMARY | 2025-03-16 01:27 | XMS_ITS | CONTINUITY OF CARE DOCUMENT ---
Author Name leandra mobley Address Unknown Organization [facility] Address [address] [place] [address] Phone [phone] Care Team Providers Care Senior Group Manager Name Role Phone Rene Montgomery MD Unavailable LINETTE COOPER MD Unavailable [phone] SHERI BANG MD Unavailable INSURANCE PROVIDERS Payer name Policy type / Coverage type Gus red democrat ID [employer] insurance [employer] [id number]
--- OUTSIDE RECORDS SUMMARY | 2025-03-16 01:27 | XMS_ITS | Continuity of Care Document ---
Author Name [facility] Organization [facility] Care Team Providers Care Taffy Candy Maker Name Role Phone [facility] Unavailable Unavailable Problems Combined list of problems from Department of Defense and Veterans Affairs facilities. It does not include entries that were removed or entered in error. Problem Status Onset Date Problem Type Date of Resolution Comments Source Exposure to potentially hazardous substance (SCT [id number]) Active Condition Apr 30 Entered By: PAULINE HALL Comment: Entered automatically through ANGELO Problem List documentation program [facility] Hemorrhoids Active Condition [facility] Hyperlipidemia Active Condition [facility] Past history of procedure Active Condition Jun 08, 2021 Entered By: MARIJA AVELAR Comment: childhood umbilical herniorrhaphyA2020 Entered By: MARIJA AVELAR Comment: 07/2007 diagnostic laparoscopy with repeat umbilical herniorrhaphy [facility] Tobacco User (SCT [id number]) Active Condition [facility] JOINT INSTABILITY ANKLE / FOOT Inactive Condition JOINT INSTABILI TY ANKLE / FOOT DoD ankle joint pain Inactive Condition ankle joint pain DoD ANKLE SPRAIN RIGHT Inactive Condition ANKLE SPRA IN RIGHT [facility] Laboratory Studies Active Condition [facility] ALCOHOL ABUSE - EPISODIC Active Condition [facility] visit for: administrative purpose Active Condition [facility] visit for: ears / hearing exam Active [...] PADS, IF NO IMPROVEMENT TO GO TO [facility] FOR CRYOTHERAPY. [facility] visit for: services physical Active Condition DoD HEMORRHOIDS Active Condition will tx with metamucil and colace DoD Vaccines Prophylactic Need Against Influenza Active Condition DoD Vaccines Prophylactic Need Inactive Condition DoD Need For Vaccination Hepatitis B Inactive Condition DoD Need For Vaccination Hepatitis A Inactive Condition DoD visit for: screening exam pulmonary tuberculosis Inactive Condition DoD visit for: screening exam Inactive Condition [facility] Vaccines Prophylactic Need Against Single Disease Inactive Condition [facility] Vaccines Prophylactic Need Against Combinations Of Diseases Inactive Condition DoD visit for: services physical accession Inactive Condition [facility] Diagnosis: ICD-10-CM K64.9 Unspecified hemorrhoids Active Diagnosis [facility] Diagnosis: ICD-10-CM K40.90 Unil inguinal hernia, w/o obst or gangr, not spcf as recur Active Diagnosis [facility] Diagnosis: ICD-10-CM E78.5 Hyperlipidemia, unspecified Active Diagnosis [facility] Medications Combined list of outpatient medications from [...] L DISCONT INUED BY PROVIDE R 03/11/2025 [id number] Sera GODINEZ R 2024 120 [facility] CHLORHEXIDI NE GLUCONATE 4% LIQUID,TOP [...] WITH EYES) TOPICJamel L DISCONT INUED 02/15/2025 [id number] MANOJ LAUREN 2024 120 [facility] NICOTINE 21MG/24HRS PATCH APPLY 1 PATCH TO SKIN SITE EVERY MORNING FOR TOBACCO CESSATIO N REMOVE OLD PATCH BEFORE APPLYING NEW ONE. ROTATE SITES. DO NOT SMOKE WHILE WEARING PATCH. TRANSD ERMAL HOLD 03/17/2025 [id number] DEPAULO,S UZANNE 2024 42 [facility] NICOTINE 21MG/24HRS PATCH APPLY 1 PATCH TO SKIN SITE EVERY MORNING REMOVE OLD PATCH BEFORE APPLYING NEW ONE. ROTATE SITES. DO NOT SMOKE WHILE WEARING PATCH. TRANSD ERMAL 09/08/2024 [id number] 4 DEPAULO,S UZANNE 2023 42 [facility] ROSUVASTATI N CA 10MG TAB TAKE ONE TABLET BY MOUTH EVERY EVENING FOR HIGH CHOLESTE ROL ORAL DISCONT INUED BY PROVIDE R 08/22/2025 [id number] 4 DEPAULO,S UZANNE 2023 30 [facility] ROSUVASTATI N CA 20MG TAB TAKE ONE-HALF TABLET BY MOUTH EVERY EVENING ORAL ACTIVE 01/08/2026 [id number] 5 DEPAULO,S UZANNE 2024 45 [facility] ROSUVASTATI N CA 20MG TAB TAKE ONE-HALF TABLET BY MOUTH EVERY EVENING ORAL DISCONT INUED 01/08/2026 [id number] 5 DEPAULO,S UZANNE 2024 15 [facility] Allergies, Adverse Reactions, Alerts Combined list of allergies from Department of Defense and Veterans Affairs facilities. It does not include entries that were removed or entered in error. Substance Category Reaction Severity Reaction type Status Date Reported Comments Source No Known Allergies Drug allergy (disorder) active 12/30/[address] [facility] [place] Immunizations Combined list of available immunizations from the Department of Defense and Veterans Affairs facilities. Immunization Series Date Given Administered By Site Reaction Lot Number CVX Code Drug Catalyst Supervisor Status Comments Source Novel influenza-H1N 1-09, injectable 1 2008 [id number] [address] [facility] [address] (NOV) complet ed Novel influenza -[id number], injectabl e DoD influenza virus vaccine, live, attenuated, for intranasal use 1 2008 [id number] Unknown (UNK) comple t ed influenza virus vaccine, live, attenuate d, for intranasa l use DoD typhoid Vi capsular polysaccharid e vaccine 1 2008 UNK 101 Unknown (UNK) comple t ed typhoid Vi capsular polysacch aride vaccine DoD anthrax vaccine 7 2008 [id number] Other (OTH) complet ed anthrax vaccine DoD anthrax vaccine 6 2008 [id number] 24 Unknown (UNK) comple t ed anthrax vaccine DoD influenza virus vaccine, split virus (incl. purified surface antigen)-reti red CODE 1 2007 [id number] 15 Unknown (UNK) complet ed influenza virus vaccine, split virus (incl. purified surface antigen)- retired CODE DoD anthrax vaccine 5 2007 [id number] 24 Unknown (UNK) comple t ed anthrax vaccine DoD vaccinia (smallpox) vaccine 1 2007 UNK 75 [facility]) complet ed vaccinia (smallpox ) vaccine DoD anthrax vaccine 4 2007 UNK 24 [employer] (MED) complet ed anthrax vaccine DoD anthrax vaccine 3 2007 [id number] 24 Other (OTH) complet ed anthrax vaccine DoD anthrax vaccine 2 2007 [id number] 24 Other (OTH) complet ed anthrax vaccine DoD anthrax vaccine 1 2007 [id number] 24 Other (OTH) complet ed anthrax vaccine DoD influenza virus vaccine, live, attenuated, for intranasal use 1 2006 [id number] [employer] (MED) complet ed influenza virus vaccine, [...] live, attenuated, for intranasal use 1 2005 [id number] 111 [employer]. (MED) complet ed influenza virus vaccine, live, [...] B vaccine 1 2005 [id number] 104 [employer] (SKB) complet ed hepatitis A and hepatitis B vaccine DoD trivalent poliovirus vaccine, live, oral 1 2005 [id number] Sanofi Pasteur (PMC) complet ed trivalent polioviru s vaccine, live, oral DoD meningococcal polysaccharid e vaccine (MPSV4) 1 2005 [id number] Sanofi Pasteur (PMC) complet ed meningoco ccal polysacch aride vaccine (MPSV4) DoD tetanus toxoid, reduced diphtheria toxoid, and acellular pertu is vaccine, adsorbed 1 2005 [id number] Sanofi Pasteur (PMC) complet ed tetanus [...] 28, 2024 01:13 PM Reporting Lab: [facility] [address] [place] [phone] Performing Lab: [facility] [address] [place] [phone] [facility] CBC ERYTHROCYTES [#/VOLUME] IN BLOOD BY AUTOMATED COUNT 5.01 10*6/u L 4.10 - 5.70 07/28 Specimen Type: BLOOD No comment entered. Ordering Provider: SELVIN MARLEY Report Released Date/Time: Jul 28, 2024 01:13 PM Reporting Lab: [address] [phone] Performing Lab: [address] [phone] [place] [address] CBC HEMOGLOBIN [MASS/VOLUME ] IN BLOOD 12.3 g/dL 13.1 - 16.8 07/28 L Specimen Type: BLOOD No comment entered. Ordering Provider: SELVIN MARLEY Report Released Date/Time: Jul 28, 2024 01:13 PM Reporting Lab: [facility] [address] [place] [phone] Performing Lab: [address] [phone] [place] [address] CBC HEMATOCRIT [VOLUME FRACTION] OF BLOOD 39.3 38.2 - 48.4 07/28 Specimen Type: BLOOD No comment entered. Ordering Provider: SELVIN MARLEY Report Released Date/Time: Jul 28, 2024 01:13 PM Reporting Lab: [facility] [address] [place] [phone] Performing Lab: [address] [phone] [facility] CBC MCV [ENTITIC VOLUME] BY AUTOMATED COUNT 78.4 fL 80.0 - 100.0 07/28 L Specimen Type: BLOOD No comment entered. Ordering Provider: SELVIN MARLEY Report Released Date/Time: Jul 28, 2024 01:13 PM Reporting Lab: [facility] [address] [place] [address] [place] [address] Performing Lab: [facility] [address] [place] [phone] [facility] CBC MCH [ENTITIC MASS] BY AUTOMATED COUNT 24.6 pg 27.0 - 34.0 07/28 L Specimen Type: BLOOD No comment entered. Ordering Provider: SELVIN MARLEY Report Released Date/Time: Jul 28, 2024 01:13 PM Reporting Lab: [facility] [address] [place] [phone] Performing Lab: [address] [phone] [facility] CBC MCHC [MASS/VOLUME ] BY AUTOMATED COUNT 31.3 g/dL 33.0 - 36.0 07/28 L Specimen Type: BLOOD No comment entered. Ordering Provider: SELVIN MARLEY Report Released Date/Time: Jul 28, 2024 01:13 PM Reporting Lab: [facility] [address] [place] [phone] Performing Lab: [address] [phone] [facility] CBC PLATELETS [#/VOLUME] IN BLOOD BY AUTOMATED COUNT 309 10*3/u L 150 - 400 07/28 Specimen Type: BLOOD No comment entered. Ordering Provider: SELVIN MARLEY Report Released Date/Time: Jul 28, 2024 01:13 PM Reporting Lab: [facility] [address] [place] [phone] Performing Lab: [facility] [address] [place] [phone] [facility] CBC PLATELET MEAN VOLUME [ENTITIC VOLUME] IN BLOOD BY AUTOMATED COUNT 9.7 fL 7.5 - 11.2 07/28 Specimen Type: BLOOD No comment entered. Ordering Provider: SELVIN MARLEY Report Released Date/Time: Jul 28, 2024 01:13 PM Reporting Lab: [facility] [address] [facility] [phone] Performing Lab: [facility] [address] [facility] [phone] [facility] CBC ERYTHROCYTE DISTRIBUTION WIDTH [RATIO] BY AUTOMATED COUNT 19.5 11.8 - 15.1 07/28 H Specimen Type: BLOOD No comment entered. Ordering Provider: SELVIN MARLEY Report Released Date/Time: Jul 28, 2024 01:13 PM Reporting Lab: [facility] [address] [facility] [phone] Performing Lab: [facility] [address] [facility] [address] [facility] CBC LYMPHOCYTES/ 100 LEUKOCYTES IN BLOOD BY AUTOMATED COUNT 41 07/28 Specimen Type: BLOOD No comment entered. Ordering Provider: SELVIN MARLEY Report Released Date/Time: Jul 28, 2024 01:13 PM Reporting Lab: [facility] [address] [facility] [phone] Performing Lab: [facility] [address] [facility] [phone] [facility] CBC MONOCYTES/10 0 LEUKOCYTES IN BLOOD BY AUTOMATED COUNT 16 07/28 Specimen Type: BLOOD No comment entered. Ordering Provider: SELVIN MARLEY Report Released Date/Time: Jul 28, 2024 01:13 PM Reporting Lab: [facility] [address] [facility] [phone] Performing Lab: [facility] [address] [facility] [address] [facility] CBC NEUTROPHILS/ 100 LEUKOCYTES IN BLOOD BY AUTOMATED COUNT 39 07/28 Specimen Type: BLOOD No comment entered. Ordering Provider: SELVIN MARLEY Report Released Date/Time: Jul 28, 2024 01:13 PM Reporting Lab: [facility] [address] [facility] [phone] Performing Lab: [facility] [address] [facility] [phone] [facility] CBC EOSINOPHILS/ 100 LEUKOCYTES IN BLOOD BY AUTOMATED COUNT 4 07/28 Specimen Type: BLOOD No comment entered. Ordering Provider: SELVIN MARLEY Report Released Date/Time: Jul 28, 2024 01:13 PM Reporting Lab: [facility] [address] [place] [phone] Performing Lab: [facility] [address] [place] [phone] [facility] CBC BASOPHILS/10 0 LEUKOCYTES IN BLOOD BY AUTOMATED COUNT 0 07/28 Specimen Type: BLOOD No comment entered. Ordering Provider: SELVIN MARLEY Report Released Date/Time: Jul 28, 2024 01:13 PM Reporting Lab: [facility] [address] [place] [phone] Performing Lab: [address] [phone] [place] [address] CBC LYMPHOCYTES [#/VOLUME] IN BLOOD BY AUTOMATED COUNT 1.90 10*3/u L 0.77 - 4.50 07/28 Specimen Type: BLOOD No comment entered. Ordering Provider: SELVIN MARLEY Report Released Date/Time: Jul 28, 2024 01:13 PM Reporting Lab: [facility] [address] [place] [phone] Performing Lab: [facility] [address] [place] [phone] [facility] CBC MONOCYTES [#/VOLUME] IN BLOOD BY AUTOMATED COUNT 0.72 10*3/u L 0.19 - 0.80 07/28 Specimen Type: BLOOD No comment entered. Ordering Provider: SELVIN MARLEY Report Released Date/Time: Jul 28, 2024 01:13 PM Reporting Lab: [facility] [address] [place] [phone] Performing Lab: [facility] [address] [place] [phone] [facility] CBC NEUTROPHILS [#/VOLUME] IN BLOOD BY AUTOMATED COUNT 1.84 10*3/u L 2.10 - 8.00 07/28 L Specimen Type: BLOOD No comment entered. Ordering Provider: SELVIN MARLEY Report Released Date/Time: Jul 28, 2024 01:13 PM Reporting Lab: [address] [phone] Performing Lab: [address] [phone] [place] [address] CBC EOSINOPHILS [#/VOLUME] IN BLOOD BY AUTOMATED COUNT 0.18 10*3/u L 0.00 - 0.60 07/28 Specimen Type: BLOOD No comment entered. Ordering Provider: SELVIN MARLEY Report Released Date/Time: Jul 28, 2024 01:13 PM Reporting Lab: [address] [address] Performing Lab: [address] [phone] [facility] CBC BASOPHILS [#/VOLUME] IN BLOOD BY AUTOMATED COUNT 0.02 10*3/u L 0.00 - 0.20 07/28 Specimen Type: BLOOD No comment entered. Ordering Provider: SELVIN MRALEY Report Released Date/Time: Jul 28, 2024 01:13 PM Reporting Lab: [address] [phone] Performing Lab: [address] [phone] [facility] HGA1C HEMOGLOBIN A1C/HEMOGLOB IN.TOTAL IN BLOOD 6.0 4.0 - 6.0 07/28 Specimen Type: BLOOD No comment entered. Ordering Provider: SELVIN MARLEY Report Released Date/Time: Jul 28, 2024 01:13 PM Reporting Lab: [address] [address] Performing Lab: [address] [phone] [place] [address] TSH W/ REFLEX FT4 (STL) THYROTROPIN [UNITS/VOLUM E] IN SERUM OR PLASMA 1.057 u[IU]/ mL 0.47 - 5 07/28 Specimen Type: PLASMA No comment entered. Ordering Provider: SELVIN MARLEY Report Released Date/Time: Jul 28, 2024 01:13 PM Reporting Lab: [facility] [address] [place] [phone] Performing Lab: [facility] [address] [facility] [phone] COMPREHENSI VE METABOLIC PANEL CREATININE [MASS/VOLUME ] IN SERUM OR PLASMA 1.18 mg/dL 0.7 - 1.3 07/28 Specimen Type: PLASMA Comment: No hemolysis noted. Ordering Provider: SELVIN MARLEY Report Released Date/Time: Jul 28, 2024 01:13 PM Reporting Lab: [facility] [address] [facility] [phone] Performing Lab: [facility] [address] [facility] [phone] [place] [address] COMPREHENSI VE METABOLIC PANEL UREA NITROGEN [MASS/VOLUME ] IN SERUM OR PLASMA 12.1 mg/dL 9.0 - 25.0 07/28 Specimen Type: PLASMA Comment: No hemolysis noted. Ordering Provider: SELVIN MARLEY Report Released Date/Time: Jul 28, 2024 01:13 PM Reporting Lab: [facility] [address] [facility] [address] Performing Lab: [facility] [address] [facility] [phone] [place] [address] COMPREHENSI VE METABOLIC PANEL GLUCOSE [MASS/VOLUME ] IN SERUM OR PLASMA 65 mg/dL 72 - 99 07/28 L Specimen Type: PLASMA Comment: No hemolysis noted. Ordering Provider: SELVIN MARLEY Report Released Date/Time: Jul 28, 2024 01:13 PM Reporting Lab: [facility] [address] [facility] [address] Performing Lab: [facility] [address] [facility] [address] [facility] COMPREHENSI VE METABOLIC PANEL SODIUM [MOLES/VOLUM E] IN SERUM OR PLASMA 140 meq/L 136 - 145 07/28 Specimen Type: PLASMA Comment: No hemolysis noted. Ordering Provider: SELVIN MARLEY Report Released Date/Time: Jul 28, 2024 01:13 PM Reporting Lab: [facility] [address] [facility] [phone] Performing Lab: [facility] [address] [place] [phone] [facility] COMPREHENSI VE METABOLIC PANEL POTASSIUM [MOLES/VOLUM E] IN SERUM OR PLASMA 4.2 meq/L 3.5 - 5 07/28 Specimen Type: PLASMA Comment: No hemolysis noted. Ordering Provider: SELVIN MARLEY Report Released Date/Time: Jul 28, 2024 01:13 PM Reporting Lab: [facility] [address] [facility] [phone] Performing Lab: [facility] [address] [place] [phone] [facility] COMPREHENSI VE METABOLIC PANEL CHLORIDE [MOLES/VOLUM E] IN SERUM OR PLASMA 108 meq/L 98 - 107 07/28 H Specimen Type: PLASMA Comment: No hemolysis noted. Ordering Provider: SELVIN MARLEY Report Released Date/Time: Jul 28, 2024 01:13 PM Reporting Lab: [facility] [address] [place] [phone] Performing Lab: [facility] [address] [place] [phone] [facility] COMPREHENSI VE METABOLIC PANEL CARBON DIOXIDE, TOTAL [MOLES/VOLUM E] IN SERUM OR PLASMA 21 meq/L 22 - 31 07/28 L Specimen Type: PLASMA Comment: No hemolysis noted. Ordering Provider: SELVIN MARLEY Report Released Date/Time: Jul 28, 2024 01:13 PM Reporting Lab: [facility] [address] [facility] [phone] Performing Lab: [facility] [address] [facility] [phone] [facility] COMPREHENSI VE METABOLIC PANEL CALCIUM [MASS/VOLUME ] IN SERUM OR PLASMA 9.3 mg/dL 8.4 - 10.4 07/28 Specimen Type: PLASMA Comment: No hemolysis noted. Ordering Provider: SELVIN MARLEY Report Released Date/Time: Jul 28, 2024 01:13 PM Reporting Lab: [facility] [address] [place] [phone] Performing Lab: [facility] [address] [facility] [address] [facility] COMPREHENSI VE METABOLIC PANEL PROTEIN [MASS/VOLUME ] IN SERUM OR PLASMA 7.5 g/dL 6 - 8.6 07/28 Specimen Type: PLASMA Comment: No hemolysis noted. Ordering Provider: SELVIN MARLEY Report Released Date/Time: Jul 28, 2024 01:13 PM Reporting Lab: [facility] [address] [place] [phone] Performing Lab: [facility] [address] [place] [phone] [facility] COMPREHENSI VE METABOLIC PANEL ALBUMIN [MASS/VOLUME ] IN SERUM OR PLASMA 4.2 g/dL 3.4 - 5 07/28 Specimen Type: PLASMA Comment: No hemolysis noted. Ordering Provider: SELVIN MARLEY Report Released Date/Time: Jul 28, 2024 01:13 PM Reporting Lab: [facility] [address] [facility] [address] Performing Lab: [facility] [address] [place] [phone] [facility] COMPREHENSI VE METABOLIC PANEL BILIRUBIN.TO PAULINO [MASS/VOLUME ] IN SERUM OR PLASMA 0.2 mg/dL 0.2 - 1.2 07/28 Specimen Type: PLASMA Comment: No hemolysis noted. Ordering Provider: SELVIN MARLEY Report Released Date/Time: Jul 28, 2024 01:13 PM Reporting Lab: [facility] [address] [facility] [address] Performing Lab: [facility] [address] [place] [phone] [facility] COMPREHENSI VE METABOLIC PANEL ALKALINE PHOSPHATASE [ENZYMATIC ACTIVITY/VOL UME] IN SERUM OR PLASMA 48 U/L 40 - 150 07/28 Specimen Type: PLASMA Comment: No hemolysis noted. Ordering Provider: SELVIN MARLEY Report Released Date/Time: Jul 28, 2024 01:13 PM Reporting Lab: [facility] [address] [facility] [address] Performing Lab: [facility] [address] [place] [phone] [facility] COMPREHENSI VE METABOLIC PANEL ASPARTATE AMINOTRANSFE RASE [ENZYMATIC ACTIVITY/VOL UME] IN SERUM OR PLASMA 23 U/L 5 - 34 07/28 Specimen Type: PLASMA Comment: No hemolysis noted. Ordering Provider: SELVIN MARLEY Report Released Date/Time: Jul 28, 2024 01:13 PM Reporting Lab: [facility] [address] [place] [phone] Performing Lab: [facility] [address] [place] [phone] [facility] COMPREHENSI VE METABOLIC PANEL ALANINE AMINOTRANSFE RASE [ENZYMATIC ACTIVITY/VOL UME] IN SERUM OR PLASMA 16 U/L 8 - 40 07/28 Specimen Type: PLASMA Comment: No hemolysis noted. Ordering Provider: SELVIN MARLEY Report Released Date/Time: Jul 28, 2024 01:13 PM Reporting Lab: [facility] [address] [facility] [address] Performing Lab: [facility] [address] [place] [phone] [facility] COMPREHENSI VE METABOLIC PANEL GLOMERULAR FILTRATION RATE/1.73 SQ M.PREDICTED [VOLUME RATE/AREA] IN SERUM, PLASMA OR BLOOD BY CREATININE-B ASED FORMULA (CKD-EPI 2020) 81.0 60 07/28 Specimen Type: PLASMA Comment: No hemolysis noted. Ordering Provider: SELVIN MARLEY Report Released Date/Time: Jul 28, 2024 01:13 PM Reporting Lab: [facility] [address] [facility] [address] Performing Lab: [facility] [address] [facility] [address] [facility] LIPID PANEL (STL) CHOLESTEROL [MASS/VOLUME ] IN SERUM OR PLASMA 298 mg/dL 0 - 200 07/28 H Specimen Type: PLASMA Comment: No hemolysis noted. Ordering Provider: SELVIN MARLEY Report Released Date/Time: Jul 28, 2024 01:13 PM Reporting Lab: [facility] [address] [facility] [address] Performing Lab: [facility] [address] [facility] [address] [facility] LIPID PANEL (STL) TRIGLYCERIDE [MASS/VOLUME ] IN SERUM OR PLASMA 94 mg/dL 0 - 150 07/28 Specimen Type: PLASMA Comment: No hemolysis noted. Ordering Provider: SELVIN MARLEY Report Released Date/Time: Jul 28, 2024 01:13 PM Reporting Lab: [facility] [address] [facility] [address] Performing Lab: [facility] [address] [facility] [place] [id number] [facility] LIPID PANEL (STL) CHOLESTEROL IN LDL [MASS/VOLUME ] IN SERUM OR PLASMA BY CALCULATION 229 mg/dL 07/28 Specimen Type: PLASMA Comment: No hemolysis noted. Ordering Provider: SELVIN MARLEY Report Released Date/Time: Jul 28, 2024 01:13 PM Reporting Lab: [facility] [address] [place] [id number] Performing Lab: [facility] [address] [facility] [phone] [facility] LIPID PANEL (STL) CHOLESTEROL IN HDL [MASS/VOLUME ] IN SERUM OR PLASMA 50 mg/dL 40 07/28 Specimen Type: PLASMA Comment: No hemolysis noted. Ordering Provider: SELVIN MARLEY Report Released Date/Time: Jul 28, 2024 01:13 PM Reporting Lab: [facility] [address] [facility] [id number] Performing Lab: [facility] [address] [facility] [address] [facility] Vital Signs Combined list of inpatient and outpatient Vital Signs from Department of Defense and Veterans Affairs, ranging from 12 months to all on record, depending upon the facility. Vital Sign Value Date Comments Source SYSTOLIC BLOOD PRESSURE 145 01/17/20 08:50:42 [facility] DIASTOLIC BLOOD PRESSURE 94 025 08:50:42 [facility] PULSE OXIMETRY 100 01/16/2025 08:50:42 [facility] WEIGHT 179.3 01/16/2025 08:50:42 [facility] BMI 26 kg/m2 01/16/2025 08:50:42 [facility] PAIN 0 01/16/2025 08:50:42 [facility] HEIGHT 70 01/16/2025 08:50:42 [facility] TEMPERATURE 97.3 01/16/2025 08:50:42 [facility] PULSE 106 01/16/2025 08:50:42 [facility] RESPIRATION 16 01/16/2025 08:50:42 [facility] SYSTOLIC BLOOD PRESSURE 146 01/08/20 25 13:40:23 [facility] DIASTOLIC BLOOD PRESSURE 88 025 13:40:23 [facility] PULSE OXIMETRY 9 01/07/2025 13:40:23 [facility] WEIGHT 177 01/07/2025 13:40:23 [facility] BMI 25 kg/m2 01/07/2025 13:40:23 . [facility] PAIN 4 01/07/2025 13:40:23 [facility] HEIGHT 70 01/07/2025 13:40:23 [facility] TEMPERATURE 97.8 01/07/2025 13:40:23 [facility] PULSE 82 01/07/2025 13:40:23 [facility] RESPIRATION 20 01/07/2025 13:40:23 [facility] SYSTOLIC BLOOD PRESSURE 141 07/28/20 24 12:34:06 [facility] DIASTOLIC BLOOD PRESSURE 89 024 12:34:06 [facility] PULSE OXIMETRY 98 07/28/2024 12:34:06 [facility] WEIGHT 172.4 07/28/2024 12:34:06 [facility] BMI 25 kg/m2 07/28/2024 12:34:06 [facility] PAIN 0 07/28/2024 12:34:06 [facility] HEIGHT 70 07/28/2024 12:34:06 [facility] TEMPERATURE 98.4 07/28/2024 12:34:06 [facility] PULSE 104 07/28/2024 12:34:06 [facility] RESPIRATION 18 07/28/2024 12:34:06 [facility] SYSTOLIC BLOOD PRESSURE 122 04/23/20 24 12:49:26 [facility] DIASTOLIC BLOOD PRESSURE 80 0 [id number]|2025-03-16 07:17:00|2025-03-16 07:17:00|[id number]||||"History and Physical Update Update Date/Time: 03/16/25 07:17 History and Physical has been reviewed, including an updated exam of the patient. There are NO changes in the patient's condition. Risks, benefits, and alternatives have been discussed and questions answered. Patient agrees to proceed with procedure."
--- OUTSIDE RECORDS SUMMARY | 2025-03-16 01:27 | XMS_ITS | Clinical Summary ---
Author Organization [facility] Address [address] [place] [address] Care Team Providers Care Marketing Account Manager Name Role Phone Judy Persaud MD Primary Care Provider [phone] Allergies No known active allergies Medications No [...] or Tdap) 06/15/2016 06/15/2006 COVID-19 Vaccine ( season) 2024 Meningococcal Vaccine Aged Out 06/15/2006 [...] patient's age to complete this topic Insurance [facility] Care Teams Marketing Account Manager Relationship Specialty Start Date End Date Judy Persaud MD [address] [place] [address] PCP - General FAMILY PRACTICE 06/14/24
[2025-03-16] MEDS: KETOROLAC 15 MG/ML VIAL (*BKC) IV PUSH ×2 (07:01→10:01)
[2025-03-16] MEDS: LACTATED RINGERS 1,000 ML 30 ML IV CONT ×2 (07:01→10:47)
[2025-03-16] MEDS: ACETAMINOPHEN 500 MG TABLET 1000 MG PO (07:01)
--- NOTE | 2025-03-16 07:17 | P.HPUP_ITS ---
History and Physical Update Update Date/Time: 03/16/25 07:17 History and Physical has been reviewed, including an updated exam of the patient. There are NO changes in the patient's condition. Risks, benefits, and alternatives have been discussed and questions answered. Patient agrees to proceed with procedure.
[2025-03-16] MEDS: ceFAZolin 2 GM/D5W 50 ML 2 GM/50 ML BAG IVPB (07:30)
[2025-03-16] MEDS: BUPivacaine HCL 0.5% 10 ML AMP 30 ML INFILTRATE (08:14)
[2025-03-16] MEDS: LIDO 1%/EPINEPHRINE 1:100,000 50 ML VIAL 30 ML INFILTRATE (08:15)
--- NOTE | 2025-03-16 10:53 | P.OP_ITS ---
Procedure Note - Detailed Date of Procedure 03/16/25 Pre-op Diagnosis Reducible right inguinal hernia Post-op Diagnosis Other (Reducible indirect right inguinal hernia with adhesions of omentum and bowel to periumbilical mesh) Procedure Performed Robotic assisted laparoscopic right inguinal hernia repair with Bard 3D mid weight mesh and laparoscopic abdominal adhesiolysis Surgeon Nato Eden MD Senior Engineering Specialist Steven De La Cruz [employer] Anesthesia General Indications This patient is a 39-year-old gentleman who presented with a bulge in the right groin region. It was reducible. It had been symptomatic for quite some time. No history of incarceration. Exam showed a reducible right inguinal hernia. Prior history of umbilical hernia repair open approach with mesh placement. Findings Patient had a reducible indirect right inguinal hernia. 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 No incarceration of bowel in the hernia. The patient had adhesions of small bowel and omentum to the umbilical mesh. The adhesions of the bowel and the omentum were taken down with robotic laparoscopic dissection without injury to the bowel. Description of Procedure After informed consent was obtained patient brought to the operating room was placed supine position and general endotracheal anesthesia was administered. The abdomen and bilateral groin regions were then prepped and draped usual sterile fashion. A time-out was then performed correctly identifying the patient as well as procedure to be performed. Site marking was verified and he was given perioperative IV antibiotics. I then started by placing a 5mm Optiview port in left upper quadrant utilizing a direct optical insertion. Once inside the abdomen insufflated to adequate pneumoperitoneum of 15mmHg CO2. Immediately seen were adhesions of the small bowel and omentum to the patient's old umbilical hernia mesh repair. The mesh seemed to be a small circular piece of PTFE mesh. I could see around the adhesions and could tell there was no alfonso dence of a left inguinal hernia. There was evidence of an indirect right inguinal hernia without incarcerated bowel. I then placed additional 8mm robotic trocars in a left lateral abdominal wall. The robot was then brought to the patient's bedside and docked with the arms attached the robotic ports. The robotic instruments were then advanced into the abdomen under direct visualization. I then very carefully proceeded to perform a robotic assisted laparoscopic adhesiolysis of the small bowel and omentum off of the old umbilical hernia mesh. This is done very carefully without causing any enterotomies to the small bowel. Once this was done I could then have full view of the pelvis and then I undocked the the robot from the bedside and then placed additional robotic trocar ports include a lower epigastric robotic trocar port and a right lateral abdominal trocar port. The robot was then redocked robotic instruments were placed back into the abdomen under direct visualization. I th en scrubbed out the procedure sent down the robotic console to perform the dissection. I started by making a preperitoneal flap on the right lower abdomen with robotic hook cautery. I continued dissection is preperitoneal plane down to the hernia sac and identified the inferior epigastric vessels. The hernia sac was lateral to the inferior epigastric vessels for indirect right inguinal hernia. I continued my dissection inferiorly after dividing the median umbilical ligament on the right side. I dissected all the way down to the right pubic tubercle and across the midline of the pubic symphysis. I dissected down into the space of Retzius for couple cm. I then proceeded to reduce the indirect inguinal hernia sac out of the internal ring. This is done very carefully preserving all of the cord structures to include the vas deferens and testicular vessels. There was a moderately large cord lipoma which was dissected free of the cord structures as well and then resected with electro cautery and removed from the abdomen. Once I had the vas deferens and testicular vessels identified all the way dissected up to the psoas muscle and the peritoneum dissected up onto the psoas muscle I felt that I would have enough space to place the mesh. A extra-large piece of Bard 3D mid weight mesh measuring 17cm in length by 12cm in width was placed into the abdomen through the such trocar port site. The mesh was oriented for the right side. It was then placed into the dissected space conforming to the space covering the whole myopectineal orifice. The mesh was then secured to the tissues around the pubic tubercle utilizing a 2-0 Vicryl suture. Laterally the mesh was secured to the muscle anterior and superior to the left anterior superior iliac crest. Additional sutures placed at the direct space. There is no evidence of bleeding. I then check and the mesh did not roll up with closure of the peritoneal flap. A running 2-0 absorbable V lock suture was then used to reapproximate the edges of the peritoneum and exclude the mesh from the intra- abdominal viscera. I then checked the loops of small bowel which had been adherent to the mesh and were taken down and there was no evidence of bleeding and no evidence of bowel injury. I then had all the robotic instruments removed from the abdomen the robot was undocked from the patient's bedside. I then scrubbed back in the procedure and then proceeded to close the 8mm lower epigastric upper abdominal wall port site and the 10mm left upper quadrant trocar port site with a 0 Vicryl suture transfascially. All the port sites were then removed and the abdomen allowed to decompress. All the port sites were hemostatic. I then irrigated all the port sites sterile saline solution hemostasis was good. I then closed all the port sites utilizing a running subcuticular 4-0 Monocryl suture at the skin level. The incisions were then cleaned the skin glue was applied. The patient tolerated the procedure well no complications. All sponges, needles, and instrument counts were correct at the end procedure. EBL was _20__cc. The patient was awakened and taken to recovery in stable and satisfactory condition. Implants Bard 3D mid weight mesh extra-large [id number] oriented her for right side. Estimated Blood Loss 20 Drains No Packing No Pathology None sent Complications No immediate complications Condition Stable Disposition PACU [facility] Billing Surgery - Charge Forward: Surgery Billing
[2025-03-16] MEDS: fentaNYL CITRATE INJ (*CRX) 100 MCG/2 ML VIAL 25 MCG IV PUSH ×3 (11:15→11:30)
[2025-03-16] MEDS: oxyCODONE HCL (*CRX) 5 MG TAB IR PO (11:55)
[2025-03-16] MEDS: ARTIFICIAL TEARS OPHTH SOLN 15 ML BOTTLE 1 DROP EACH EYE (11:59)
== END 2025-03-16 13:05 | disposition home or self-care (01) ==
PROVIDERS: PCP Family Medicine; Visit Provider Surgery
PROC: 8E0Y4CZ Robotic Assisted Procedure of Lower Extremity, Percutaneous Endoscopic Approach (ICD-10-PCS; CPT 49650; principal; 2025-03-16 07:30)
DX: K40.90 Unilateral inguinal hernia, without obstruction or gangrene, not specified as recurrent (principal); D17.6 Benign lipomatous neoplasm of spermatic cord; K66.0 Peritoneal adhesions (postprocedural) (postinfection); I10 Essential (primary) hypertension; D50.9 Iron deficiency anemia, unspecified; F14.90 Cocaine use, unspecified, uncomplicated; F12.90 Cannabis use, unspecified, uncomplicated; F17.210 Nicotine dependence, cigarettes, uncomplicated; Z98.890 Other specified postprocedural states; Z87.19 Personal history of other diseases of the digestive system; Z82.49 Family history of ischemic heart disease and other diseases of the circulatory system
CPT/HCPCS: 49650; S2900; A9270; C1781; J0690; J1100; J1885; J2004; J2250; J2371; J2405; J2704; J3010; J7120